=== PATIENT | female | born 2000 | race Caucasian/White ===

== ENCOUNTER 2023-11-14 13:46 | Outpatient (AMB) | payer BC, SELFPAY ==
--- NOTE | 2023-11-14 13:46 | MHC.OFFVISPS ---
Intake Vital Signs 11/14/23 14:20 Height 5 ft 6 in Weight 135 lb Intake Visit Reasons: depression Design Assembler Required: No Allergies No Known Allergies Allergy (Verified 11/14/23 13:48) Medication List - Last Reconciled 11/14/23 by Irina Huber APRN escitalopram oxalate 40 mg PO DAILY mirtazapine 15 mg PO BEDTIME norethindrone ac-eth estradiol 1-20 mg-mcg () 1 tab PO DAILY HPI- Psychiatric Chief Complaint: depression HPI Narrative: pt has been taking lexapro 40 mg daily for severe OCd with good effects; she takes remeron 15mg at bedtime for sleep, appetite and anxiety/depression. she ahs been on these medications since june 2021 with a marked improvement in mood, OCD symptoms and functioning. She is working as a [employer] and is very successful; she broke up with long time BF which she feels was good for her; she is spending time with friends and family. she eats well; she runs 6 miles a day usually. she has no medical changes. Her mother joins the appointment at pts request due to first time in this building. pt will come to futue appointments on her own. no si or hi Past Psychiatric History: Pt came to treatment in 2020 reporting: get extra nervous She worries about a wide range of things including her health, her family's health, about her finding a job, she worries and thinks about her past experiences of being bullied at school. She appears to minimize her symptoms saying not now but in December; She reports the anxiety makes me feel like weight on shoulder sleep poor- wake up night sweats, thinks she is anemic; has vivid dreams. She reports she has loss of appetite frequently-she often has trouble eating in am until late afternoon. she will have snack at 2 pm and eats dinner- snack later in evening. She has OCD and has a hard time talking about intrusive thoughts and rituals; she does say she cleans her bedroom and her belongings a certain way every morning; she will get very upset if someone moves things. She will count to 4 if something is out of order; she was unwilling or unable to describe further. She denies depression; she enjoys her dog. She reports she has a good group of friends who can talk about anything and are supportive to each other; she loves anything to do with dogs, enjoys driving around listening music, she is not in school and likely won't go to school due to Dyslexia and difficult experiences in school. She worked 3yr at [employer] but it closed recently so she is unemployed. History of treatment when in 3rd or 4th grade for OCD, TOMI and dyslexia . She was dx of dyslexia in 3rd grade. She saw a senior hadoop developer in past but it was not a good match. She was prescribed Prozac by PCP up to 60 mg daily in past- over the past two years pt has been tapering it slowly and is now on 10 mg daily. She had an ER visit over the summer due to severe panic attack- she says she was also told she had low potassium at the time. NO inpt treatment; no SI or HI; no previous attempts to hurt or kill herself; no history of Bipolar type symptoms; failed trial of prozac Subjective Subjective Subjective Medication Compliance: Yes Side effects from medications: No Review of Systems Medical Review of Systems: unchanged Mental Status Exam Mental Status Exam Patient Appearance: Well Grooomed and Appropriate Patient Orientation: Person, Place, Time and Situation Level of Consciousness: Awake Patient Behavior: Appropriate and Cooperative Mood Description: Happy and Anxious Affect Description: Happy and Anxious Patient Cognition Impaired: No Ability to Follow Directions: Good Speech Pattern: Clear and Appropriate Memory Description: Intact Hallucinations: None Delusions: Not Present Thought Process: Intact and Goal Oriented Thought Content: positive for Intact and positive for Goal Oriented Judgement: Good Assessment and Plan Assessment & Plan (1) OCD (obsessive compulsive disorder): Status: Acute Qualifiers: Obsessive-compulsive disorder type: mixed obsessional thoughts and acts Qualified Code(s): F42.2 - Mixed obsessional thoughts and acts Code(s): F42.9 - Obsessive-compulsive disorder, unspecified Plan continue medications return in 4 months Medications: New escitalopram oxalate 40 mg (2 x 20 mg) PO DAILY 60 tabs 3RF mirtazapine 15 mg PO BEDTIME 30 tabs 3RF Counseling and coordination of Care Pt. Self Management counseling: Maintenance-social rhythm, Mod caffeine/ETOH intake, Sleep hygiene and General coping skills Medication management counseling: Effectiveness, Side effects, Dosing range, Duration, Drug interaction and Adherence Diagnosis and Prognosis Counseling: Accuracy of diagnosis, Prognosis over time, Impact of diagnosis on life functions, Impact of family relationship, Problematic behaviors secondary to diagnosis and Adequacy of current interventions Details: I spent 45 minutes reviewing the record, seeing the patient and documenting in the medical record. Counseling provided to the patient/caregiver as outlined below. Addressed patient/caregiver concerns regarding current medication regime including effective adherence. Addressed patient/caregiver concerns regarding diagnosis and prognosis including accuracy of diagnosis, prognosis over time, impact of diagnosis. Addressed patient/caregiver concerns regarding impact of recent stressors. PFSH Social History: lives with mom, stepdad, grandmother and step sister ; works as technical documentation specialist. Substance History: vapes especially at night to get back t sleep if wakes in night; uses small amounts on weekends; drinks 4 drinks per week. Trauma History: none Coding Level of Care Code Est Pt Level 5 (44016) Diagnoses Mixed obsessional thoughts and acts F42.2 Obsessive-compulsive disorder type: mixed obsessional thoughts and acts
== END 2023-11-14 15:06 | disposition home or self-care (01) ==
LOC: HO.HOP 13:46
PROVIDERS: PCP Internal Medicine; Visit Provider Clinical Nurse Specialist Psychiatric/Mental Health
DX: F42.2 Mixed obsessional thoughts and acts (principal)
CPT/HCPCS: 99215

== ENCOUNTER → 2023-11-14 13:46 | Outpatient (BNVA) | payer BC, SELFPAY | PROVIDERS: PCP Internal Medicine; Visit Provider Clinical Nurse Specialist Psychiatric/Mental Health ==

== ENCOUNTER 2024-07-22 13:44 | Outpatient (AMB) | payer OTHER, SELFPAY ==
--- NOTE | 2024-07-22 13:59 | A.OFFPSYCH_ITS ---
Intake Intake Visit Reasons: depression Dredge Captain Required: No Allergies No Known Allergies Allergy (Verified 11/14/23 13:48) Medication List - Last Reconciled 07/22/24 by Irina Huber APRN escitalopram oxalate 40 mg (2 x 20 mg) PO DAILY mirtazapine 15 mg PO BEDTIME norethindrone ac-eth estradiol 1-20 mg-mcg () 1 tab PO DAILY HPI- Psychiatric Chief Complaint: depression HPI Narrative: pt reports she is 4 weeks ; she is taking the lexarpo 40mg daily but stopped the remeron at bedtime; she reports mood is good; anxiety is stable; she is not sleeping well since stopping the remeron; we discussed riaks vs benefits of lexapro and remeron during ; reviewed the findings of NIH stufdies that show overall better for mom and baby for depression and anxiety to be fully treated while preganant; And that there was a conflicting evidence that there is a very small risk of congenital heart malformations, low weight and delvery with SSRIs. recommended she talk with WILL dubose to get appt and also see if the psychitrist at [facility] who specializes in psychiatry could meet with her for a consult. discussed if tolerable could reduc e leaspro to 30mg for one month and if still feeling good could reduce to 20mg daily and stay there if tolerable. If not tolerated could increase back to 30 mg or 40 mg in 4th trimester and then reduce again in 9th trimester so that baby has less withdrawal symptoms at . recommend pt go back on the remeron for sleep and appetite. pt denies SI r HI. Past Psychiatric History: Pt came to treatment in 2020 reporting: get extra nervous She worries about a wide range of things including her health, her family's health, about her finding a job, she worries and thinks about her past experiences of being bullied at school. She appears to minimize her symptoms saying not now but in December; She reports the anxiety makes me feel like weight on shoulder sleep poor- wake up night sweats, thinks she is anemic; has vivid dreams. She reports she has loss of appetite frequently-she often has trouble eating in am until late afternoon. she will have snack at 2 pm and eats dinner- snack later in evening. She has OCD and has a hard time talking about intrusive thoughts and rituals; she does say she cleans her bedroom and her belongings a certain way every morning; she will get very upset if someone moves things. She will count to 4 if something is out of order; she was unwilling or unable to describe further. She denies depression; she enjoys her dog. She reports she has a good group of friends who can talk about anything and are supportive to each other; she loves anything to do with dogs, enjoys driving around listening music, she is not in school and likely won't go to school due to Dyslexia and difficult experiences in school. She worked 3yr at [employer] but it closed recently so she is unemployed. History of treatment when in 3rd or 4th grade for OCD, TOMI and dyslexia . She was dx of dyslexia in 3rd grade. She saw a health actuary in past but it was not a good match. She was prescribed Prozac by PCP up to 60 mg daily in past- over the past two years pt has been tapering it slowly and is now on 10 mg daily. She had an ER visit over the summer due to severe panic attack- she says she was also told she had low potassium at the time. NO inpt treatment; no SI or HI; no previous attempts to hurt or kill herself; no history of Bipolar type symptoms; failed trial of prozac Subjective Subjective Subjective Medication Compliance: Yes Side effects from medications: No Review of Systems Medical Review of Systems: changed (4 weeks ) Mental Status Exam Mental Status Exam Patient Appearance: Well Grooomed Patient Orientation: Person, Place, Time and Situation Level of Consciousness: Awake, Appropriate and Alert Patient Behavior: Appropriate, Cooperative and Good Eye Contact Mood Description: Calm and Happy Affect Description: Calm and Happy Patient Cognition Impaired: No Ability to Follow Directions: Good Speech Pattern: Clear Memory Description: Intact Hallucinations: None Delusions: Not Present Thought Process: Intact and Goal Oriented Thought Content: positive for Goal Oriented Judgement: Good Telehealth Telehealth Telehealth Platform: Other (please specify) ([email or web address]) Location of provider rendering services: practice address Location of patient: address on file Patient Identification confirmed using: Name, : Yes Telehealth method: video Patient verbally consented to treatment: Yes Patient verbally consented to billing insurance company: Yes Patient informed of any privacy concerns related to visit: Yes Minutes spent on Phone/Video with Pt.: 28 Assessment and Plan Assessment & Plan (1) OCD (obsessive compulsive disorder): Status: Acute Qualifiers: Obsessive-compulsive disorder type: mixed obsessional thoughts and acts Qualified Code(s): F42.2 - Mixed obsessional thoughts and acts Code(s): F42.9 - Obsessive-compulsive disorder, unspecified Plan recommend decrease lexarpo to 30mg daily x 1 month then decrease to 20mg daily until next follow up appt can restart remeron at bedtime follow up in 6-8 weeks reacj out to [facility] and see if can schedule consult with psychiatrist Medications: Refilled mirtazapine 15 mg PO BEDTIME 30 tabs 3RF escitalopram oxalate 40 mg (2 x 20 mg) PO DAILY 180 tabs 1RF Counseling and coordination of Care Pt. Self Management counseling: Maintenance-social rhythm, Mod caffeine/ETOH intake, Nutrition education and improvement, Sleep hygiene and Behavior activation Medication management counseling: Effectiveness, Side effects, Dosing range, Duration, Drug interaction and Adherence Diagnosis and Prognosis Counseling: Accuracy of diagnosis, Prognosis over time, Impact of diagnosis on life functions, Impact of family relationship, Problematic behaviors secondary to diagnosis and Adequacy of current interventions Details: I spent 40 minutes reviewing the record, seeing the patient and documenting in the medical record. Counseling provided to the patient/caregiver as outlined below. Addressed patient/caregiver concerns regarding current medication regime including ef fective adherence. Addressed patient/caregiver concerns regarding diagnosis and prognosis including accuracy of diagnosis, prognosis over time, impact of diagnosis. Addressed patient/caregiver concerns regarding impact of recent stressors. [facility] Social History: lives with mom, stepdad, grandmother and step sister ; works as cat scan tech. Substance History: vapes especially at night to get back t sleep if wakes in night; uses small amounts on weekends; drinks 4 drinks per week. Trauma History: none Coding Level of Care Code Tele Est Pt Level 4 (33453) Diagnoses Mixed obsessional thoughts and acts F42.2 Obsessive-compulsive disorder type: mixed obsessional thoughts and acts
--- OUTSIDE RECORDS SUMMARY | 2024-07-22 16:32 | XMS_ITS | Data Portability ---
Author Organization [place] - [facility],, DENISHA COWAN MD Address [address] [address] Assessment No assessment recorded. Plan of Treatment Reminders Order Date Submit Date Provider Last Modified By Organization Details Last Modified Time Details Appointments None recorded. Lab None recorded. Referral None recorded. Procedures None recorded. Surgeries None recorded. Imaging None recorded. Medication Orders Depo-Kosher Butcher a 150 mg/mL intramuscul ar suspension 2022 023 [email or web address] n1 [id number], [address] [place] [address], [id number], 3 08:26:36 Depo-Kosher Butcher a 150 mg/mL intramuscul ar suspension 2021 022 [email or web address] n1 [id number], [address] [place] [address], [id number], 2 08:16:55 Depo-Kosher Butcher a 150 mg/mL intramuscul ar suspension 2021 022 [email or web address] n1 [id number], [address] [place] [address], [id number], 2 15:15:42 Depo-Kosher Butcher a 150 mg/mL intramuscul ar suspension 2021 022 [email or web address] n1 [id number], [address] [place] [address], [id number], 2 09:50:44 Patient TargetsNo targets recorded. Patient Instructions Encounter Date Encounter Id Patient Instructions Last Modified By Organization Details Last Modified Time 09/21/2021 [id number] shot for control: care instructions Not available 09/21/2021 09:50:44 12/17/2021 [id number] shot for control: care instructions Not available 12/17/2021 15:15:41 03/14/2022 [id number] shot for control: care instructions Not available 03/14/2022 08:16:55 06/06/2022 [id number] shot for control: care instructions Not available 06/06/2022 08:26:36 09/06/2022 [id number] She is here for annual exam, she is on depo provera, is 4 days past the 13 week cut off for the injection. Initially she informed the MA that she had not been sexually active in one week. She later stated that she has not been sexually active in 5 months, that she is certain she could not be , and would like to get the injection today, and she is certain that she is still within the 13 week time frame, in any event. ____ Note from 03/2021: She is here for annual exam, doing well on depo provera, only rare spotting, elects to continue. She weighed 150 pounds a year ago, now is 111. She notes it is due to gastritis. When I eat things I get heartburn, even just some almonds. She is 5 feet 6 inches. She has an appointment this to see a front edger. She has never tried prilosec. We discussed her weight loss. She denies anorexia or intentional weight loss, she feels it is due to gastritis. She is advised to start prilosec OTC for now, and to see her PCP and also a GI doctor. She understands and agrees. She has been on depo provera since 02/2018, and she was gaining weight after that for a while, so her gastritis is not likely due to the depo provera. The MA and I explained to her how the 13 weeks is calculated, however she notes that we are wrong and she is still in the time frame. I advised her that if indeed she has not been sexually active in 5 months then we can go ahead with the injection today, that was not a problem. She noted that she has anxiety and this was stressing me out. She called her mother to speak with her, and after this she noted that she has decided not to get the injection today and not to have the annual exam today. She preferred to just leave. This conversation was had in the presence of TM, the MA. I apologized to the patient for upsetting her, and again advised that we could give her the depo provera injection today, however she adamantly declines, ad decided to just go home. No charge for the visit. Not available 09/06/2022 14:52:39 Reason for Referral None Reported. Problems Name Problem SNOMED Code Status Onset Date Resolution Date Notes Provider Name and Address Organization Details Recorded Time Chill 57890719 Active 2018 Denisha Cowan MD [address] [facility],[address], [place], [address], [facility] - [facility], 9 14:44:22 Fatigue 33218724 Active 2018 Denisha Cowan MD [address] [facility],[address], [place], [address], [place] - [facility], 9 14:44:30 Unexplained weight loss 509862985 Active 2021 Denisha Cowan MD [address] [facility],[address], [place], [address], [facility] - [facility], 2 11:06:02 Problem Notes None recorded. Medical Equipment None Reported. Allergies No known drug allergies Medications Name Sig Start Date Stop Date Status Note LastModified by Organization Details LastModified Time valacyclovi r 1 gram tablet Take by oral route for 1 day. active Not Available Not Available No t Available penicillin V potassium 500 mg tablet TAKE 1 TABLET TWICE A DAY BY ORAL ROUTE FOR 10 DAYS. 01/04 completed Not Available Not Available Not Available fluoxetine 20 mg tablet TAKE 1 TABLETS BY MOUTH EVERY DAY 01/21 completed Not Available Not Available Not Available clotrimazol e-betametha sone 1 %-0.05 % topical cream active Not Available Not Available Not Available fluoxetine 10 mg capsule TAKE 1 CAPSULE BY MOUTH EVERY DAY 10/13 completed Not Available Not Available Not Available Drysol Dab-O-Matic 20 % topical solution PLEASE SEE ATTACHED FOR DETAILED DIRECTION S active Not Available Not Available No t Available amoxicillin 400 mg/5 mL oral suspension 10/13 completed Not Available Not Available Not Available mupirocin 2 % topical ointment APPLY 1-3X DAILY TO WOUND ON FOOT (BX SITE) UNTIL HEALED. active Not Available Not Available No t Available mirtazapine 15 mg tablet TAKE 1 TABLET BY MOUTH EVERYDAY AT BEDTIME active Not Available Not Available No t Available medroxyprog esterone 150 mg/mL intramuscul ar suspension INJECT 1 ML EVERY 3 MONTHS BY INTRAMUSC ULAR ROUTE DIRECTED active Not Available Not Available No t Available Depo-Kosher Butcher a 150 mg/mL intramuscul ar syringe Inject 1 mL every 3 months by intramusc ular route. 10/28 completed Not Available Not Available Not Available escitalopra m 10 mg tablet TAKE 1 TABLET BY MOUTH EVERY DAY 08/02 completed Not Available Not Available Not Available escitalopra m 20 mg tablet TAKE 2 TABLETS BY MOUTH EVERY DAY active Not Available Not Available No t Available Klor-Con M20 mEq tablet,exte nded release 04/19 completed Not Available Not Available Not Available mirtazapine 7.5 mg tablet TAKE 1 TABLET BY MOUTH EVERYDAY AT BEDTIME 08/02 completed Not Available Not Available Not Available Vitals Date Recorded Body height Body mass index (BMI) Body weight Body temperature Heart rate Systolic blood pressure Diastolic blood pressure Provider Name and Address Organization Details Last Updated DateTime 2 168.91 cm 19.4 kg/m2 79095.2 7 g 97.2 [degF] 76 /min 102 mm[Hg] 65 mm[Hg] Candelaria Armstrong [place] - [facility], 2 09:32:55 Date Recorded Body height Body mass index (BMI) Body weight Heart rate Systolic blood pressure Diastolic blood pressure Provider Name and Address Organization Details Last Updated DateTime 2 168.91 cm 20.7 kg/m2 11135.0 1 g 76 /min 107 mm[Hg] 62 mm[Hg] Candelaria Sivla in [facility], 2 14:41:59 Date Recorded Body height Body mass index (BMI) Body weight Heart rate Systolic blood pressure Diastolic blood pressure Provider Name and Address Organization Details Last Updated DateTime 2 168.91 cm 20.7 kg/m2 48780.0 1 g 65 /min 103 mm[Hg] 52 mm[Hg] Candelaria Silva in [facility], 2 07:57:10 Date Recorded Body height Body mass index (BMI) Body weight Heart rate Body temperature Systolic blood pressure Diastolic blood pressure Provider Name and Address Organization Details Last Updated DateTime 3 168.91 cm 21.3 kg/m2 07125.1 g 81 /min 98.8 [degF] 110 mm[Hg] 59 mm[Hg] Ana Silva in [facility], 3 07:57:48 Date Recorded Body height Body mass index (BMI) Body weight Heart rate Systolic blood pressure Diastolic blood pressure Provider Name and Address Organization Details Last Updated DateTime 3 168.91 cm 22.1 kg/m2 93169.3 4 g 79 /min 129 mm[Hg] 66 mm[Hg] Candelaria Silva in [facility], 3 14:18:07 Social History Question Answer Notes LastModified by Organizat ion Details LastModified Time Tobacco Smoking Status Never Smoker Not Available [facility] 03/28/2020 03:19:43 Do You Have An Advance Directive? No [id number] Information not available 03/28/2020 What Is Your Level Of Alcohol Consumption? Occasional Information not available 01/04/2021 How Many Years Have You Consumed Alcohol? 1 Information not available 01/04/2021 What Is Your Level Of Caffeine Consumption? Moderate [id number] Information not available 03/28/2020 How Much Tobacco Do You Chew? None [id number] Information not available 03/28/2020 In The 14 Days Before Symptom Onset, Have You Had Close Contact With A Laboratory-lissette FERRARIID-19 While That Case Was Ill? No [id number] Information not available 03/28/2020 In The 14 Days Before Symptom Onset, Have You Had Close Contact With A Person Who Is Under Investigation For COVID-19 While That Person Was Ill? No [id number] Information not available 03/28/2020 Have You Been To An Area Known To Be High Risk For COVID-19? No [id number] Information not available 03/28/2020 Are You Currently Employed? Yes Information not available 09/21/2021 What Type Of Diet Are You Following? REGULAR [id number] Information not available 03/28/2020 Which Illicit Or Recreational Drugs Have You Used? Marijuana Information not available 10/13/2020 Do You Reside In Or Have You Traveled To An Area Where Ebola Virus Transmission Is Active? No [id number] Information not available 03/28/2020 Do You Or Have You Ever Used E-cigarettes Or Vape? Current User Of Electronic Cigarettes Sometimes Information not available 04/19/2020 Education 12 Information no t available 01/21/2019 What Is The Highest Grade Or Level Of School You Have Completed Or The Highest Degree You Have Received? [id number] Information not available 01/04/2021 Who Is Your Employer? 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 0 Information not available 01/21/2019 Are There Any Guns Present In Your Home? No [id number] Information not available 03/28/2020 High Number Of Sexual Partners No Information not available 01/21/2019 How Many Years Have You Used Illicit Or Recreational Drugs? 14 Information not available 01/04/2021 To Which Gender Do You Self-identify? Female Information not available 01/21/2019 Marital Status Single Boyfriend Informatio n not available 04/19/2020 What Was The Date Of Your Most Recent Tobacco Screening? 09/06/2022 Information not available 09/06/2022 What Is Your Relationship Status? Single Information not available 01/04/2021 Seat Belts Used Routinely Yes Information not available 01/21/2019 Are You Sexually Active? Yes [id number] Information not available 03/28/2020 Smoke Alarm In Home Yes Information not available 01/21/2019 At What Age Did You Start Smoking Tobacco? 16 Marijuana Information not available 10/13/2020 Do You Or Have You Ever Used Smokeless Tobacco? Never Used Smokeless Tobacco [id number] Information not available 03/28/2020 How Much Tobacco Do You Smoke? No [id number] Information not available 03/28/2020 General Stress Level Medium Information not available 01/21/2019 Do You Feel Stressed (tense, Restless, Nervous, Or Anxious, Or Unable To Sleep At Night)? [id number] Information not available 01/04/2021 Do You Use Any Illicit Or Recreational Drugs? Yes Information not available 01/04/2021 Do You Use Sunscreen Routinely? Yes [id number] Information not available 03/28/2020 How Many Years Have You Smoked Tobacco? 0 [id number] Information not available 03/28/2020 Have You Recently (within The Last 12 Weeks, Or During A Current ) Traveled To Or Lived In A Zika-affected Area? No Information not available 01/21/2019 Do You Or Have You Ever Used Any Other Forms Of Tobacco Or Nicotine? Yes Information not available 01/04/2021 How Many Days In The Past Year Have You Consumed 4 Or More Drinks? 0 Information not available 01/04/2021 Sex: Female Functional Status Question Answer Note LastModified by Organization D etails LastModified Time What is your exercise level? Heavy Information not available 04/19/2020 Mental Status None recorded. Family History Relationship Description Onset Age of this Age Resolved Age Notes LastModified by Organization Details LastModified Time Father No current problems or disability [email or web address] Not available 01/21 14:11:20 Mother No current problems or disability [email or web address] Not available 01/21 14:11:20 Medical History Condition Response High Blood Pressure N Autoimmune Condition N Depression N History of Ovarian Cancer N Anxiety Disorder Y Arthritis N Infertility N Kidney or Bladder Problems N Osteopenia N Asthma N Hepatitis N Anesthesia complications N Candidate for MyRisk panel N Lung Disease N Defects or Inherited Disease N BRCA testing in past N History of Cancer N Endometriosis N Thyroid Problems N GI Problems N Anemia N History of Breast Cancer N EBENEZER exposure N Psychiatric Illness N Diabetes N Headaches or Migraines Y Heart Disease N Hypertension N Osteoporosis N Gynecological History Statement/Question Response Flow Light Date of LMP 04/20/2019 Frequency of Cycle (Q days) Menses Monthly N Duration of Flow (days) Age at Menarche 12 Current Control Method Depo-Kosher Butcher a Obstetrics History GPAL:G 1 P 0 0 1 0 Type Value Induced 1 Living 0 Total 1 Immunizations Vaccine Type Date Status Note Provider Nam e and Address Organization Details Recorded Time Influenza, split virus, quadrivalent, preservative 8 completed Ana Meczywor null [place] - [facility], 01/21/2019 14:10:35 HPV, unspecified formulation 8 completed Ana Meczywor null, [place] - [facility], 01/21/2019 14:11:02 COVID-19, mRNA, LNP-S, PF, 100 mcg/0.5mL dose or 50 mcg/0.25mL dose 1 completed Candelaria copeland [place] - [facility], 09/21/2021 09:33:54 IPV 1 completed Ana Meczywor null, [place] - [facility], 06/06/2022 08:06:22 IPV 0 completed Ana Meczywor null, [place] - [facility], 06/06/2022 08:06:22 meningococcal B, OMV 1 completed Ana Meczywor null, [place] - [facility], 06/06/2022 08:06:22 Hep B, adolescent or pediatric 0 completed Ana Meczywor null, [place] - [facility], 06/06/2022 08:06:22 DTaP 0 completed Ana Meczywor null, [place] - [facility], 06/06/2022 08:06:22 MMR 5 completed Ana Meczywor null, [place] [facility], 06/06/2022 08:06:22 HPV9 5 completed Ana Meczywor null, [place] - [facility], 06/06/2022 08:06:22 COVID-19, mRNA, LNP-S, PF, 100 mcg/0.5mL dose or 50 mcg/0.25mL dose 2 completed Ana Meczywor null, [place] - [facility], 06/06/2022 08:06:22 MMR 1 completed Ana Meczywor null, [place] [facility], 06/06/2022 08:06:22 DTaP 0 completed Ana Meczywor null, [place] [facility], 06/06/2022 08:06:22 pneumococcal conjugate PCV 7 0 completed Ana Meczywor null, [place] - [facility], 06/06/2022 08:06:22 DTaP 5 completed Ana Meczywor null, [place] - [facility], 06/06/2022 08:06:22 IPV 0 completed Ana Meczywor null, [place] - [facility], 06/06/2022 08:06:22 DTaP 0 completed Ana Meczywor null, [place] - [facility], 06/06/2022 08:06:22 meningococcal MCV4P 6 completed Ana Meczywor null, [place] - [facility], 06/06/2022 08:06:22 Hep B, adolescent or pediatric 0 completed Ana Meczywor null, [place] - [facility], 06/06/2022 08:06:22 meningococcal B, OMV 0 completed Ana Meczywor null, [place] - [facility], 06/06/2022 08:06:22 HPV9 5 completed Ana Meczywor null, [place] - [facility], 06/06/2022 08:06:22 pneumococcal conjugate PCV 7 1 completed Ana Meczywor null, [place] - [facility], 06/06/2022 08:06:22 IPV 4 completed Ana Meczywor null, [place] [facility], 06/06/2022 08:06:22 Hep B, adolescent or pediatric 1 completed Ana Meczywor null, [place] [facility], 06/06/2022 08:06:22 pneumococcal conjugate PCV 7 1 completed Ana Meczywor null, [place] - [facility], 06/06/2022 08:06:22 Hib, unspecified formulation 1 completed Ana Meczywor null, [place] - [facility], 06/06/2022 08:06:22 Influenza, split virus, trivalent, PF 3 completed Ana Meczywor null, [place] - [facility], 06/06/2022 08:06:22 varicella 1 completed Ana Meczywor null, [place] - [facility], 06/06/2022 08:06:22 DTaP 1 completed Ana Meczywor null, [place] - [facility], 06/06/2022 08:06:22 meningococcal MCV4P 2 completed Ana Meczywor null, [place] - [facility], 06/06/2022 08:06:22 COVID-19, mRNA, LNP-S, PF, 100 mcg/0.5mL dose or 50 mcg/0.25mL dose 2 completed Ana Meczywor null, [place] - [facility], 06/06/2022 08:06:22 Hib, unspecified formulation 0 completed Ana Meczywor null, [place] - [facility], 06/06/2022 08:06:22 Influenza, split virus, quadrivalent, PF 8 completed Ana Meczywor null, [place] - [facility], 06/06/2022 08:06:22 varicella 3 completed Ana Meczywor null, [place] - [facility], 06/06/2022 08:06:22 pneumococcal conjugate PCV 7 1 completed Ana Meczywor null, [place] - [facility], 06/06/2022 08:06:22 Hib, unspecified formulation 0 completed Ana Meczywor null, [place] - [facility], 06/06/2022 08:06:22 HPV, quadrivalent 4 completed Ana Meczywor null, [place] - [facility], 06/06/2022 08:06:22 Hib, unspecified formulation 0 completed Ana Meczywor null, [place] - [facility], 06/06/2022 08:06:22 Tdap 2 completed Ana Meczywor null, [place] - [facility], 06/06/2022 08:06:22 Past Encounters Encounter ID Performer Location Encounter Start Date Encounter Closed Date Diagnosis/Indication Diagnosis SNOMED-CT Code Diagnosis ICD10 Code Diagnosis Note [id number] MD DENISHA Stephenson MD [address] [facility] [address] [facility] [place] [address] 01/21/2019 13:52:52 01/21/2019 15:49:29 Specialized medical examination 58596597 Z01.419 Venereal d isease screening 746944149 Z11.3 Dysuria 78643920 R30.0 Urine for culture 118671 001 Z75.2 [id number] MD DENISHA Stephenson MD [address] [place] [address],[address] [place] [address] 02/05/2019 08:20:30 02/05/2019 09:53:47 Dysmenorrhea [id number] N94.4 [id number] MD DENISHA Stephenson MD [address] [place] [address],[place] [address] 04/30/2019 08:50:44 04/30/2019 12:14:24 Dysmenorrhea [id number] N94.4 [id number] MD DENISHA Stephenson MD [address] [place] [address],[place] [address] 08/03/2019 13:55:06 08/03/2019 14:48:13 Dysmenorrhea [id number] N94.4 [id number] MD DENISHA Stephenson MD [address] [place] [address],[place] [address] 10/29/2019 09:19:20 10/29/2019 09:56:40 Dysmenorrhea [id number] N94.4 [id number] MD DENISHA Stephenson MD [address] [place] [address],[place] [address] 01/24/2020 10:00:55 01/24/2020 13:34:50 Dysmenorrhea [id number] N94.4 Specialize d medical examination 87536073 Z01.419 Venereal d isease screening 587844519 Z11.3 [id number] MD DENISHA Stephenson MD [address] [place] [address],[place] [address] 04/19/2020 08:58:53 04/19/2020 09:29:28 Dysmenorrhea [id number] N94.4 [id number] MD DENISHA Stephenson MD [address] [place] [address],[place] [address] 07/17/2020 09:00:53 07/17/2020 09:52:25 Dysmenorrhea [id number] N94.4 [id number] DenishaMD DENISHA Yanes MD [address] [place] [address],[place] [address] 10/13/2020 10:20:52 10/13/2020 11:11:06 Dysmenorrhea [id number] N94.4 [id number] MD DENISHA Stephenson MD [address] [place] [address],[place] [address] 01/04/2021 08:51:29 01/04/2021 11:41:09 Dysmenorrhea [id number] N94.4 [id number] MD DENISHA Stephenson MD [address] [place] [address],[place] [address] 04/03/2021 09:15:51 04/03/2021 10:09:38 Specialized medical examination 82984734 Z01.419 Venereal d isease screening 086848410 Z11.3 Dysmenorrhea [id number] N 94.4 [id number] MD DENISHA Stephenson MD [address] [place] [address],[place] [address] 06/28/2021 09:57:30 06/28/2021 15:58:51 Dysmenorrhea [id number] N94.4 [id number] MD DENISHA Stephenson MD [address] [place] [address],[place] [address] 08/02/2021 10:44:04 08/02/2021 13:18:09 Chill 04360934 R68.83 Fatigue 26306503 R53.83 Unexplaine d weight loss 957354890 R63.4 [id number] MD DENISHA Stephenson MD [address] [place] [address],[place] [address] 09/21/2021 09:27:52 09/21/2021 11:55:09 Dysmenorrhea [id number] N94.4 [id number] MD DENISHA Stephenson MD [address] [place] [address],[place] [address] 12/17/2021 14:38:55 12/17/2021 16:03:24 Dysmenorrhea [id number] N94.4 [id number] MD DENISHA Stephenson MD [address] [place] [address], [place] [address] 03/14/2022 07:53:16 03/14/2022 09:11:16 Dysmenorrhea [id number] N94.4 [id number] MD DENISHA Stephenson MD [address] [place] [address], [place] [address] 06/06/2022 07:55:18 06/06/2022 09:19:26 Dysmenorrhea [id number] N94.4 [id number] MD DENISHA Stephenson MD [address] [place] [address], [place] [address] 09/06/2022 14:14:10 09/06/2022 15:08:20 Health Concerns Section Related Observation LastModified by Organization Detai ls LastModified Time None Recorded Concern Status LastModified by Organization Details LastModified Time None Recorded Advance Directives Directive N: Payers Encounter Date Sequence Insurance Name Policy Number Policy Goodson Covered Member ID Goodson Member ID Guarantor Name 09/21/2021 1 [place] [facility] [id number] Yen Rai [id number] 05 Yazmin Rai 12/17/2021 1 [place] [facility] ([facility] [id number] Yen Rai [id number] Yazmin Rai 03/14/2022 1 [place] [facility] ([facility] [id number] Yen Rai [id number] 05 Yazmin Rai 06/06/2022 1 [place] [facility] ([facility] [id number] Yen Rai [id number] 05 Yazmin Rai 09/06/2022 1 [place] [facility] ([facility] [id number] Yen Rai [id number] Yazmin Rai Notes Date Note Type Note Provider Name and Address Organization Details Recorded Time 09/06/2022 text/html She is here for annual exam, she is on depo provera, is 4 days past the 13 week cut off for the injection. Initially she informed the MA that she had not been sexually active in one week. She later stated that she has not been sexually active in 5 months, that she is certain she could not be , and would like to get the injection today, and she is certain that she is still within the 13 week time frame, in any event. Note from 03/2021: She is here for annual exam, doing well on depo provera, only rare spotting, elects to continue.She weighed 150 pounds a year ago, now is 111. She notes it is due to gastritis. When I eat things I get heartburn, even just some almonds. She is 5 feet 6 inches.She has an appointment this to see a front edger. She has never tried prilosec.We discussed her weight loss. She denies anorexia or intentional weight loss, she feels it is due to gastritis.She is advised to start prilosec OTC for now, and to see her PCP and also a GI doctor. She understands and agrees.She has been on depo provera since 02/2018, and she was gaining weight after that for a while, so her gastritis is not likely due to the depo provera. Denisha Cowan MD [address], [place], [address], [place] - [facility], 09/06/2022 14:52:57 OBGyn Episode No OBEpisode recorded.
--- OUTSIDE RECORDS SUMMARY | 2024-07-22 16:32 | XMS_ITS ---
Author Organization [facility] Address [address] [place] [address] Care Team Providers Care Molecular Biology Scientist Name Role Phone BAIG, JOHNNY Unavailable [phone] Encounters Encounter Location Date Provider Diagnosis [facility] [address] [place] [address] 11/05/2023 JOHNNY BAIG PLAN OF TREATMENT No Information Progress Notes * Lauryn YOB: [birth year] (23 yo F)Acc No.[id number]:11/05/2023 Patient:??Yazmin YO :2000?Age:23 Y?Sex:Fe male Address:[place] [address] * true * Date:??
--- OUTSIDE RECORDS SUMMARY | 2024-07-22 16:32 | XMS_ITS | Continuity of Care Document ---
Author Organization [facility] [address] [place] [address] Phone [phone] Social History Type Date Description Comments Sex Unknown Medical Devices Description No Information Available Encounters Description No Information Available Assessments Description No Information Available Plan of Treatment No Information Available Functional Status Description No Information Available Mental Status Description No Information Available Referrals Description No Information Available
--- OUTSIDE RECORDS SUMMARY | 2024-07-22 16:32 | XMS_ITS | Data Portability ---
Author Organization [place] - [facility], [facility] Address [address] [place] [address] Assessment Encounter Date Assessment Date Assessment LastModified by Organization Details LastModified Time 03/10/2019 03/10/2019 Anxiety- doing well on lexapro- no side effects. No SI and does contract for safety- disc therapy gastritis- abd pain resolved on omeprazole. doing well jyunis Not available 03/10/2019 17:00:39 06/15/2019 06/15/2019 Healthy 18 year old. Nl growth and dev Anxiety - doing well on lexapro- is in therapy as needed- no SI STD screening done at [facility] 2 months ago and not sex active since jyunis Not available 06/15/2019 17:08:30 12/06/2019 12/06/2019 Anxiety - doing well on lexapro- does contract for safety. anxiety under good control.. FU at [facility]. sooner with concerns jyunis Not available 12/06/2019 15:43:55 08/21/2020 08/21/2020 Healthy 19 year old. Nl growth and dev Anxiety - doing well on lexapro- no SI- is seeing psych for lexapro- Not in therapy STD screening done at [facility] 1 months ago jyunis Not available 08/21/2020 13:05:12 10/11/2020 10/11/2020 Strep pharyngitis - Amox (pt unable to swallow pills due to pain) x 10 days, change toothbrush, contagious x 12 hrs, sx care, f/u prn; Tonsillar hypertrophy - baseline with some snoring per Mom and pt, no apnea, to try Flonase or Nasocort, f/u prn kcamera Not available 10/12/2020 03:41:34 Plan of Treatment Reminders Order Date Submit Date Provider Last Modified By Organization Details Last Modified Time Details Appointments None recorded. Lab rapid strep group A, throat 2020 021 crystal [facility], [address] [place] [address], [phone], 17:09:38 Referral None recorded. Procedures None recorded. Surgeries None recorded. Imaging None recorded. Medication Orders amoxicillin 400 mg/5 mL oral suspension 2020 021 [facility] #[id number], [address] [place], [address], 03:30:53 Patient TargetsNo targets recorded. Patient Instructions Encounter Date Encounter Id Patient Instructions Last Modified By Organization Details Last Modified Time 06/15/2019 [id number] program - 5 fruits & veggies jyunis Not available 06/15/2019 16:39:08 [id number] program - 1 hour of exercise jyunis Not available 06/15/2019 16:39:07 patient health questionnaire depression assessment* jyunis Not available 06/15/2019 17:08:07 immunization: wh at you need to know jyunis Not available 06/15/2019 16:39:07 08/21/2020 [id number] program - 5 fruits & veggies jyunis Not available 08/21/2020 13:07:33 [id number] program - 1 hour of exercise jyunis Not available 08/21/2020 13:07:33 patient health questionnaire depression assessment* ROSA Not available 08/21/2020 14:44:31 immunization: wh at you need to know jyunis Not available 08/21/2020 13:07:33 Reason for Referral None Reported. Results Created Date Observation Date Name Description Value Unit Range Abnormal Flag Note LastModifiedBy Organization Detail LastModifiedTime 06/15/19 20 06/15/2019 patie nt [facility]alt [facility] quest ionna meghan depre ssion asses sment * PHQ-9 negati ve Not Available [facility] [address] [place] [address], [phone], 06/15/2019 15:27:51 08/22/19 21 08/21/2020 patie nt healt h quest ionna meghan otis small * PHQ-9 negati ve Not Available [facility] [address] [place] [address], [phone], 08/21/2020 08:26:48 10/12/19 21 10/11/2020 rapid strep group A, throa t Rapid Strep positi ve Not Available [facility] [address] [place] [address], [phone], 10/11/2020 16:28:23 Result Notes None recorded. Problems Name Problem SNOMED Code Status Onset Date Resolution Date Notes Provider Name and Address Organization Details Recorded Time Abdominal pain 30952286 Completed 09/26/2011 Not Available [facility] 3 03:02:28 Pneumonia 924201457 Completed 10/22/2012 Not Available [facility] 3 03:02:28 Viral disease 28348263 Completed 10/22/2012 Not Available [facility] 3 03:02:28 Constipati on 87609403 Completed 09/26/2011 Not Available [facility] 3 03:02:28 Child attention deficit disorder 908839844 Completed 12/06/2013 Jim Almendarez MD [address] [place] [address], , [facility] 4 11:47:43 Otitis externa 9742056 Completed 09/26/2011 Not Available [facility] 3 03:02:28 Acute pharyngiti s 849985784 Completed 09/26/2011 Not Available [facility] 3 03:02:28 Anxiety state 518528790 Active Jim Almendarez MD [address] [place] [address], , [facility] 5 17:22:58 Developmen florinda academic disorder 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 Completed 12/06/2013 Jim Almendarez MD [address] [place] [address], , [facility] 4 12:35:36 Malaise and fatigue 461476018 Completed 09/26/2011 Not Available [facility] 3 03:02:28 Obsessive- compulsive disorder 189618842 Active Jim Almendarez MD [address] [place] [address], , [facility] 3 15:11:33 Headache 27055731 Completed 12/06/2013 Jim Almendarez MD [address] [place] [address], , [facility] 4 11:47:43 Acute pharyngiti s 656996880 Completed 12/06/2013 Jim Almendarez MD [address] [place] [address], , [facility] 4 11:47:43 Sinusitis 72220883 Completed 01/22/2019 [facility] 08:47:49 Dysuria 14090439 Completed 01/22/2019 [facility] 08:47:52 Low back pain 215497431 Active Yasmany Ferreira MD [address] [place] [address], , [facility] 5 17:48:55 Anxiety 39585102 Active Jim Almendarez MD [address] [place] [address], , [facility] 5 17:40:11 Dermoid cyst of skin Active Jim Almendarez MD [address] [place] [address], , [facility] 5 17:40:11 Herpes labialis 0445812 Active 2016 Samreen Case MD [address] [place] [address], , [facility] 7 10:38:53 Suspected COVID-19 732740547 Active 2020 Samreen Case MD [address] [place], [address] , [facility] 1 16:45:09 Problem Notes None recorded. Procedures Surgical History Date Name Laterality Status Provider Name and Address Organization Details Recorded Time Hernia repair completed Not Available [facility] 03/30/2011 03:44:01 Imaging Results None recorded. Procedure Notes None recorded. Medical Equipment None Reported. Allergies No known drug allergies Medications Name Sig Start Date Stop Date Status Note LastModified by Organization Details LastModified Time fluoxetine 40 mg capsule TAKE ONE CAPSULE BY MOUTH EVERY MORNING active Not Available Not Available No t Available amoxicillin 500 mg capsule TAKE 2 CAPSULE(S ) TWICE A DAY BY ORAL ROUTE FOR 14 DAYS. active Not Available Not Available No t Available Augmentin 875 mg-125 mg tablet Take 1 tablet every 12 hours by oral route for 10 days. 03/29 completed Not Available Not Available Not Available azithromyci n 250 mg tablet TAKE 2 TABLETS BY MOUTH TODAY, THEN TAKE 1 TABLET DAILY FOR 4 DAYS 08/25 completed Not Available Not Available Not Available valacyclovi r 1 gram tablet TAKE 2 TABLETS BY MOUTH EVERY 12 HOURS FOR 1 DAY 02/23 completed Not Available Not Available Not Available cephalexin 250 mg capsule active Not Available Not Available Not Available fluoxetine 10 mg tablet active Not Available Not Available Not Available penicillin V potassium 500 mg tablet Take 1 tablet twice a day by oral route for 10 days. active Not Available Not Available No t Available amoxicillin 250 mg chewable tablet active Not Available Not Available Not Available ofloxacin 0.3 % ear drops Instill 5 drops twice a day by otic route for 5 days. 07/10 completed Not Available Not Available Not Available Concerta 54 mg tablet,exte nded release Take 1 tablet every day by oral route for 30 days. 09/11 completed Not Available Not Available Not Available cephalexin 500 mg capsule TAKE 1 CAPSULE(S ) EVERY 12 HOURS BY ORAL ROUTE FOR 7 DAYS. 05/24 completed Not Available Not Available Not Available fluoxetine 20 mg tablet TAKE 3 TABLETS BY MOUTH EVERY DAY 01/22 completed Not Available Not Available Not Available clotrimazol e-betametha sone 1 %-0.05 % topical cream active Not Available Not Available Not Available Concerta 36 mg tablet,exte nded release Take 1 tablet every day by oral route for 30 days. 10/24 completed Not Available Not Available Not Available polymyxin B sulfate 10,000 unit-trimet hoprim 1 mg/mL eye drops INSTILL 1 DROP INTO AFFECTED EYE(S) BY OPHTHALMI C ROUTE TID 12/19 completed Not Available Not Available Not Available methylpheni date ER 20 mg tablet,exte nded release active Not Available Not Available Not Available fluoxetine 10 mg capsule TAKE 1 CAPSULE BY MOUTH EVERY DAY 08/21 completed Not Available Not Available Not Available omeprazole 20 mg capsule,del ayed release Take 1 capsule every day by oral route. 2018 active Not Available Not Available Not Avai lable Adderall XR 10 mg capsule,ext ended release Take 1 capsule every day by oral route for 30 days. 11/12 completed Not Available Not Available Not Available amoxicillin 400 mg/5 mL oral suspension Take 10 mL twice a day by oral route for 10 days. active Not Available Not Available No t Available ibuprofen 600 mg tablet active Not Available Not Available Not Available methylpheni date ER 18 mg tablet,exte nded release 24 hr Take 1 tablet every day by oral route in the morning. active Not Available Not Available No t Available fluoxetine 20 mg capsule TAKE 3 CAPSULE(S ) EVERY DAY BY ORAL ROUTE FOR 30 DAYS. 10/26 completed Not Available Not Available Not Available fluticasone propionate 50 mcg/actuati on nasal spray,suspe nsion USE 1 SPRAY(S) IN EACH NOSTRIL EVERY DAY 05/29 completed Not Available Not Available Not Available medroxyprog esterone 150 mg/mL intramuscul ar suspension INJECT 1 ML EVERY 3 MONTHS BY INTRAMUSC ULAR ROUTE DIRECTED FOR 360 DAYS. active Not Available Not Available No t Available hydroxyzine pamoate 25 mg capsule TAKE 1 TO 2 TABS TWICE A DAY NEEDED THEN TAKE 2 TO 3 TABS NEEDED AT 6-7 PM FOR SLEEP active Not Available Not Available No t Available Denta 5000 Plus 1.1 % cream 01/20 completed Not Available Not Available Not Available escitalopra m 10 mg tablet TAKE 1 TABLET BY MOUTH EVERY DAY active Not Available Not Available No t Available moxifloxaci n 0.5 % eye drops INSTILL 1 DROP INTO AFFECTED EYE(S) BY OPHTHALMI C ROUTE 3 TIMES PER DAY 12/19 completed Not Available Not Available Not Available Klor-Con M20 mEq tablet,exte nded release 10/11 completed Not Available Not Available Not Available nitrofurant oin monohydrate /macrocryst als 100 mg capsule active Not Available Not Available Not Available chlorhexidi ne gluconate 0.12 % mouthwash active Not Available Not Available No t Available Depo-Stack Supervisor a 02/23 completed Not Available Not Available Not Available fluoxetine 60 mg tablet Take 1 tablet every day by oral route for 30 days. 08/25 completed Not Available Not Available Not Available Diclegis 10 mg-10 mg tablet,vianca yed release TAKE 2 TABLETS BY MOUTH AT BEDTIME 04/22 completed Not Available Not Available Not Available Vitals Date Recorded Body height Body mass index (BMI) Body mass index (BMI) Percentile per age and sex Body weight Systolic blood pressure Diastolic blood pressure Provider Name and Address Organization Details Last Updated DateTime 9 168.91 cm 22.2 kg/m2 57 % 87884.4 9 g 100 mm[Hg] 60 mm[Hg] Shilpi meza C.M.A. [facility] 9 15:36:17 Date Recorded Body height Body mass index (BMI) Percentile per age and sex Body mass index (BMI) Body weight Systolic blood pressure Diastolic blood pressure Provider Name and Address Organization Details Last Updated DateTime 0 168.91 cm 51 % 21.8 kg/m2 34281.1 5 g 110 mm[Hg] 62 mm[Hg] Tiffani Yousif RN [facility] 0 16:21:54 Date Recorded Body height Body mass index (BMI) Body mass index (BMI) Percentile per age and sex Body weight Systolic blood pressure Diastolic blood pressure Provider Name and Address Organization Details Last Updated DateTime 0 168.91 cm 23.1 kg/m2 64 % 30252.0 5 g 110 mm[Hg] 60 mm[Hg] Shani León [facility] 0 15:16:52 Date Recorded Body height Body mass index (BMI) Percentile per age and sex Body mass index (BMI) Body weight Systolic blood pressure Diastolic blood pressure Provider Name and Address Organization Details Last Updated DateTime 1 168.91 cm 23 % 19.7 kg/m2 42807.1 7 g 104 mm[Hg] 70 mm[Hg] Bina Donnelly R.N. [facility] 1 12:53:55 Social History Question Answer Notes LastModified by Organizat ion Details LastModified Time Tobacco Smoking Status [facility] 12/06/2013 11:40:54 Have There Been Any Changes To Your Family Or Social Situation? No Information not available 04/22/2018 Hard Of Hearing Or Deaf In One Or Both Ears? No Information not available 04/22/2018 Legally Blind In One Or Both Eyes? No Information not available 04/22/2018 Parent's Marital Status Information not available 10/22/2012 Home Situation Mother Information not available 03/30/2011 Siblings 0 [email or web address] Information not available 03/30/2011 Year In School College Taking spring Off [email or web address] Information not available 06/15/2019 Parent's Name Rodrick Solis [email or web address] Information not available 03/30/2011 Parent's Name Morales Atwood --sees Dad Regularly [email or web address] Information not available 03/30/2011 VFC Eligibility No Informati on not available 05/02/2015 What Was The Date Of Your Most Recent Tobacco Screening? 04/22/2018 Information not available 12/17/2018 Are You Passively Exposed To Smoke? No slevin Information not available 12/08/2014 Have You Recently Traveled Abroad? No Information not available 08/21/2020 Sex: Unknown Functional Status None recorded. Mental Status None recorded. Family History Relationship Description Onset Age of this Age Resolved Age Notes LastModified by Organization Details LastModified Time Mother Problem anxiet y slevin Not available 03/14/2015 16:38:06 Mother Problem Maybe LD slevin Not available 03/14/2015 16:38:06 Mother Allergy slevin Not available 16:38:06 Maternal Grandmother Hypercholest erolemia previo usly record ed as Elevat ed Choles terol slevin Not available 03/14/2015 16:38:06 Father Allergy previo usly record ed as Allerg ies slevin Not available 03/14/2015 16:38:06 Father Problem ADHD slevin Not available 16:38:06 Notes:Updated verbally Medical History Condition Response ADHD Y PSYCH PROBLEMS Y Gynecological History Statement/Question Response N Depo-Provera Date of LMP 07/12/2020 Age at onset of periods 11 yrs 01/04/2016 Obstetrics History GPAL:G 0 P 0 0 0 0 Immunizations Vaccine Type Date Status Note Provider Name and Address Organization Details Recorded Time Tdap 09/26/19 12 completed Not Available [facility] 06/12/2019 02:33:45 meningococcal MCV4P 09/26/19 12 completed Not Available [facility] 06/12/2019 02:33:30 IPV 09/25/19 01 completed Not Available [facility] 03/30/2011 03:19:09 Hep B, adolescent or pediatric 10/25/19 00 completed Not Available [facility] 03/30/2011 03:19:09 Hib, unspecified formulation 04/03/20 00 completed Not Available [facility] 03/30/2011 03:19:09 DTaP 04/03/20 00 completed Not Available [facility] 03/30/2011 03:19:09 MMR 01/06/20 01 completed Not Available [facility] 03/30/2011 03:19:09 Hep B, adolescent or pediatric 07/02/19 01 completed Not Available [facility] 03/30/2011 03:19:09 DTaP 01/30/20 00 completed Not Available [facility] 03/30/2011 03:19:09 MMR 09/22/19 05 completed Not Available [facility] 03/30/2011 03:19:09 DTaP 11/28/19 00 completed Not Available [facility] 03/30/2011 03:19:09 pneumococcal conjugate PCV 7 01/06/20 01 completed Not Available [facility] 03/30/2011 03:19:09 pneumococcal conjugate PCV 7 04/03/20 00 completed Not Available [facility] 03/30/2011 03:19:09 Hib, unspecified formulation 01/30/20 00 completed Not Available [facility] 03/30/2011 03:19:09 DTaP 04/22/20 01 completed Not Available [facility] 03/30/2011 03:19:09 IPV 11/28/19 00 completed Not Available [facility] 03/30/2011 03:19:09 IPV 10/12/19 04 completed Not Available [facility] 03/30/2011 03:19:09 pneumococcal conjugate PCV 7 07/02/19 01 completed Not Available [facility] 03/30/2011 03:19:09 pneumococcal conjugate PCV 7 09/25/19 01 completed Not Available [facility] 03/30/2011 03:19:09 Hep B, adolescent or pediatric 09/17/19 00 completed Not Available [facility] 03/30/2011 03:19:09 Hib, unspecified formulation 01/06/20 01 completed Not Available [facility] 03/30/2011 03:19:09 DTaP 09/22/19 05 completed Not Available [facility] 03/30/2011 03:19:09 varicella 09/25/19 01 completed Not Available [facility] 03/30/2011 03:19:09 IPV 01/30/20 00 completed Not Available [facility] 03/30/2011 03:19:09 Hib, unspecified formulation 11/28/19 00 completed Not Available [facility] 03/30/2011 03:19:09 Influenza, split virus, trivalent, PF 06/19/19 13 completed Not Available [facility] 06/12/2019 02:35:32 varicella 02/05/20 13 completed Not Available [facility] 06/12/2019 02:33:14 HPV, quadrivalent 12/07/19 14 completed Not Available [facility] 06/12/2019 02:34:13 HPV9 12/09/19 15 completed Not Available [facility] 06/12/2019 02:36:10 HPV9 04/25/20 15 completed Not Available [facility] 06/12/2019 02:36:28 meningococcal MCV4P 01/08/20 16 completed Not Available [facility] 06/12/2019 02:36:55 Influenza, split virus, quadrivalent, PF 04/22/20 18 completed Not Available [facility] 06/12/2019 02:38:38 meningococcal B, OMV 06/15/19 20 completed Tiffani Yousif RN null, [facility] 06/15/2019 16:47:14 Hep A, adult 08/22/19 21 cancelled patient objection Jim Almendarez MD [address] [facility], [place], [address], [facility] 08/21/2020 13:07:34 Influenza, split virus, quadrivalent, PF 08/22/19 21 cancelled patient objection Jim Almendarez MD [address] [facility], [place], [address], [facility] 08/21/2020 13:07:34 meningococcal B, OMV 08/22/19 21 [facility]/21/2020 13:15:22 Past Encounters Encounter ID Performer Location Encounter Start Date Encounter Closed Date Diagnosis/Indication Diagnosis SNOMED-CT Code Diagnosis ICD10 Code Diagnosis Note [id number] [facility] w [address] [place] [id number] 4 01/17/2011 15:01:46 01/17/2011 18:01:55 [id number] [facility] w [address] [place] [id number] 4 01/25/2011 14:57:33 01/25/2011 17:09:20 [id number] P[facility] w [address] [place] [id number] 4 02/14/2011 16:24:35 02/14/2011 17:52:04 [id number] [facility] [address] [place] [id number] 4 03/05/2011 13:42:50 03/05/2011 17:08:42 [id number] P[facility] w [address] [place] [id number] 4 04/19/2011 15:28:47 04/19/2011 17:18:42 [id number] PVP [address] [id number] 06/02/2011 11:38:01 06/02/2011 13:08:26 [id number] P[facility] w [address] [place] [id number] 4 06/18/2011 15:24:36 06/18/2011 18:21:57 [id number] P[facility] [address] [place] [address] 07/05/2011 14:21:59 07/05/2011 16:44:14 [id number] [facility] w [address] [place] [id number] 4 07/30/2011 16:18:29 07/30/2011 16:51:21 [id number] [facility] [address] [place] [id number] 4 09/26/2011 13:57:07 09/26/2011 17:37:13 [id number] Jim Almendarez MD [facility] [address] [place] [id number] 4 03/12/2012 13:00:43 03/12/2012 14:44:59 [id number] Jim Almendarez MD [facility] [address] [place] [id number] 4 03/16/2012 15:30:00 03/16/2012 16:49:14 [id number] Jim Almendarez MD [facility] [address] [place] [id number] 4 03/19/2012 14:28:25 03/19/2012 15:36:23 [id number] Jim Almendarez MD [facility] [address] [place] [id number] 4 10/22/2012 15:53:40 10/22/2012 18:17:20 [id number] Nasima Valera MD [facility] [address] [place] [id number] 4 02/04/2013 15:51:00 02/04/2013 16:07:06 Varicella vaccination 72212355 Shot only visit Varivax [id number] Savita White [facility] [address] [place] [id number] 4 03/23/2013 14:02:19 03/23/2013 15:11:59 Anxiety state 543438496 Obsessive- compulsive disorder 133011218 Headache 77377642 [id number] [facility] w [address] [place] [address] 09/23/2013 08:38:42 09/23/2013 09:08:52 Acute pharyngitis 486646838 [id number] [facility] [address] [id number] 12/06/2013 11:31:22 12/06/2013 12:36:04 Well child 895283750 Anxiety state 470574014 [id number] Savita White [address] [address] 06/02/2014 10:02:40 06/02/2014 10:38:22 Sinusitis 83950177 [id number] [facility] Aditya[address] [address] 09/05/2014 16:53:09 09/05/2014 17:50:47 Dysuria 65641290 Low back pain 720461141 Back pain more prominent than abd pain - ? muscular strain. No CVA tenderness . No blood on Udip to suggest nephrolith iasis. Will check urine for UTI, watch progressio n of sx and recheck if worsening, dev fevers or other concerns. [id number] [facility] Chloe [address] [address] 12/08/2014 15:15:51 12/08/2014 17:21:13 Well child 366985785 [id number] Jim Almendarez MD [address] [id number] 03/14/2015 16:25:39 03/14/2015 17:40:48 Anxiety 20100201 F41.9 Dermoid cyst of skin 276 568916 D23.9 [id number] Mateo Cameron [address] [address] 04/25/2015 16:09:14 04/25/2015 16:21:54 Active or passive immunization 377702459 Z23 [id number] Jim Almendarez MD [address] [address] 10/05/2015 13:25:30 10/05/2015 14:06:33 Anxiety 33482453 F41.9 [id number] Jim Almendarez MD [address] [address] 10/27/2015 16:03:30 10/27/2015 17:05:45 Upper respiratory infection 84372888 J06.9 [id number] Jim Almendarez MD [address] [address] 4 01/08/2016 15:44:37 01/08/2016 17:05:11 Well child 939883684 Z00.129 Active or passive immunization 913224725 Z23 Anxiety state 171925581 F41.1 [id number] Jim Almendarez MD [address] [address] 4 05/24/2016 10:16:49 05/24/2016 11:02:34 Anxiety state 008630086 F41.1 [id number] Samreen Case MD [address] [address] 05/29/2016 11:30:00 05/29/2016 12:55:20 Acute pharyngitis 574159170 J02.9 Pneumonia 537562992 J18. 9 [id number] Samreen Case MD [address] [address] 08/25/2016 09:04:45 08/25/2016 10:04:34 Acute pharyngitis 906151118 J02.9 Fever 645618968 R50.9 Herpes labialis 2675152 B00.1 Viral syndrome 308902998 B34.9 [id number] Jim Almendarez MD [address] [address] 4 01/20/2017 16:02:09 01/20/2017 17:15:02 Well child 589337458 Z00.129 Anxiety state 734129312 F41.1 [id number] Jim Almendarez MD [address] [address] 4 07/17/2017 15:10:12 07/17/2017 17:22:30 Anxiety 85411179 F41.9 Education about sexually transmitted disease prevention 578202230 Z70.8 [id number] Samreen Case MD [address] [address] 4 08/19/2017 10:28:32 08/19/2017 13:45:24 Acute pharyngitis 736421414 J02.9 Acute conjunctivitis 537 12672 H10.33 [id number] Jim Almendarez MD [address] [address] 4 12/19/2017 08:44:55 12/19/2017 12:52:31 Abdominal pain 02926951 R10.9 [id number] Jim Almendarez MD [address] [address] 4 04/22/2018 16:23:05 04/22/2018 17:50:35 Adult health examination 387516984 Z00.00 Normal bod y mass index 94297725 Z68.23 Anxiety state 564860009 F41.1 Active or passive immunization 639527342 Z23 [id number] Harmony Zarate [address] [address] 01/22/2019 12:44:26 01/22/2019 13:41:36 Night sweats 31233652 R61 Unintentio nal weight loss 300096336 R63.4 Recurrent herpes simplex labialis 153428433 B00.1 Abdominal pain 90725611 R10.9 Malaise and fatigue 2717 37693 R53.83 Substance abuse 16830852 F19.10 Proteinuria 87366338 R80 .9 [id number] Jim Almendarez MD [address] [address] 02/23/2019 09:54:27 02/23/2019 11:39:04 Anxiety 06153585 F41.9 Sleep disorder 28771157 G47.9 Gastritis 2355262 K29.70 [id number] Jim Almendarez MD [address] [address] 03/10/2019 15:27:00 03/10/2019 17:00:59 Anxiety 01434882 F41.9 Gastritis 7846708 K29.70 [id number] Jim Almendarez MD [address] [address] 06/15/2019 16:06:30 06/15/2019 17:09:01 Active or passive immunization 243353503 Z23 Adult heal th examination 466517258 Z00.00 Normal bod y mass index 14038512 Z68.21 [id number] Jim Almendarez MD [address] [address] 12/06/2019 15:09:43 12/06/2019 15:44:16 Anxiety 09165253 F41.9 [id number] Jim Almendarez MD [address] [address] 08/21/2020 12:45:00 08/21/2020 13:20:09 Active or passive immunization 507522298 Z23 Adult heal th examination 213092548 Z00.00 Diet education 14431957 Z71.3 Exercises education, guidance, and counseling 522472680 Z71.82 Normal bod y mass index 63298901 Z68.1 Anxiety 41281045 F41.9 [id number] Samreen Case MD [address] [address] 10/11/2020 16:26:55 10/12/2020 14:38:14 Streptococcal sore throat 40525320 J02.0 Hypertroph y of tonsils 64235516 J35.1 Snoring 79010218 R06.83 Anxiety 87974134 F41.9 Health Concerns Section Related Observation LastModified by Organization Detai ls LastModified Time None Recorded Concern Status LastModified by Organization Details LastModified Time None Recorded Advance Directives Directive None Recorded Payers Encounter Date Sequence Insurance Name Policy Number Policy Godoson Covered Member ID Goodson Member ID Guarantor Name 03/10/2019 1 [place] [facility] [id number] Yen Atwood [id number] Maddie Will 06/15/2019 1 [place] [facility] [id number] Yen Atwood [id number] Maddie Will 12/06/2019 1 [place] [facility] [id number] Yen Atwood [id number] Maddie Will 08/21/2020 1 [place] [facility] [id number] Yen Atwood [id number] Maddie Catino 10/11/2020 1 [facility] [id number] Yen Atwood [id number] Maddie Will Notes Date Note Type Note Provider Name and Address Organization Details Recorded Time 03/10/2019 text/html Here for anxiety recheck. Taking 10 mg of escitalopram Q day. Pt feels dosage working well. No side effects-appetite and sleeping nl.Doing much better. Is doing much better. back at work. Eating better. sleeping better. No SI. Does contract for safetyIs doing better. Does have appt with Dr Hernandez in a couple monthsAlso stopped juul and dab pen. Just smoking reg pot daily.No neg side effects.Also was having abd discomfort from the anxiety. stomach is much better.Also in the process of getting a therapist Jim Almendarez MD [address] [place] [address], , [facility] 03/10/2019 17:00:43 12/06/2019 text/html Pt and Mom/Dad a re afebrile. No ill symptoms in >10 days. No known Covid 19 exposure.Patient here for anxiety recheck; on Escitalopram 10mg. States she is very happy with the medication and that it is working well. No side effects.Was in therapy about weekly then covid. Doing well on lexapro. Med helps. Works at [employer]. planed to return to school but covid. Lives with mom. Good relations with mom. No SI. Anxiety under good control. Smokes pot 2-3 times a week. Jim Almendarez MD [address], [place], , [facility] 12/06/2019 15:43:59 08/21/2020 text/html Pt afebrile. No ill symptoms in >10 days. No known Covid 19 exposure. No travel out of [place] in > 2 weeks. Jim Almendarez MD [address] [place] [address], , [facility] 08/21/2020 13:14:06 10/11/2020 text/html RS Sick Visit Narrative HistoryReported bypatient.Notes:Dry cough, bilat ear pain, ST, nasal congestion & myalgias began yesterday. Feels like throat is swelling and has hard time breathing. No ear drainage. Denies rash. No VASQUEZ. No abd pain. No N/V/D. Afebrile. Decreased energy. Not sleeping well, but cough not interrupting sleep. Not eating or drinking much d/t sore throat, difficulty swallowing. Had Advil last night, with some relief. Had Mucinex and used nasal spray this AM, with no relief.Had to put her dog down as well so has been crying excessively and body aches may be due to this.Family vaccinated but pt has declined.PMH has had [place] in past; told by oral surgeon her tonsils were abnormally large and pt does have mild snoring/no apnea Samreen Case MD [address] [place] [address], [phone], [facility] 10/12/2020 03:42:21 OBGyn Episode No OBEpisode recorded.
--- OUTSIDE RECORDS SUMMARY | 2024-07-22 16:32 | XMS_ITS | Clinical Summary ---
Author Organization [facility] Address [address] [place] [address] Care Team Providers Care International Marketing Specialist Name Role Phone Lawrence Mascorro MD Primary Care Provider Allergies No known active allergies Medications Medication Sig Dispensed Refills Start Date End Date Status mirtazapine (REMERON) 7.5 MG tablet Take 7.5 mg by mouth every night at bedtime. 0 Active polyethylene glycol (MIRALAX) 17 g packet Take 17 g by mouth daily. 0 Active estradiol cypionate (Depo-Estradiol) 5 MG/ML injection Inject into the muscle every 28 days. 0 Active Active Problems No known active problems Family History Relation Name Status Comments Father Alive Mother Alive Social History Tobacco Use Types Packs/Day Years Used Date Smoking Tobacco: Never Smokeless Tobacco: Never Alcohol Use Standard Drinks/Week Comments Yes 0 (1 standard drink = 0.6 oz pur e alcohol) Sex and Gender Information Value Date Recorded Sex Assigned at Not on file Gender Identity Not on file Sexual Orientation Not on file Job Start Date Occupation Industry Not on file Not on file Not on file Last Filed Vital Signs Vital Sign Reading Time Taken Comments Blood Pressure 110/55 06/07/2021 8:41 AM EST Pulse 56 06/07/2021 8:41 AM EST Temperature 36.7 ??C (98 ??F) 06/07/2021 8:41 AM EST Respiratory Rate - - Oxygen Saturation 99% 06/07/2021 8:41 AM EST Inhaled Oxygen Concentration - - Weight 54.4 kg (120 lb) 06/07/2021 8:41 AM EST Height 167.6 cm (5' 6 ) 06/07/2021 8:41 AM EST Body Mass Index 19.37 06/07/2021 8:41 AM EST Plan of Treatment Health Maintenance Due Date Last Done Comments Hepatitis B Vaccines (1 of 3 - 3-dose series) 1999 Hepatitis C Screening 1999 COVID-19 Vaccine (#1) 03/16/2000 DTap / Tdap / Td (6 - Tdap) 09/14/201008/25, 04/22/2001, 04/03/2000, Additional history exists Depression Screening 2011 Gonorrhea and Chlamydia Screening 09/14/2012 Preventative Health Evaluation 09/14/2017 Cervical Cancer Screening (Pap Smear) 09/14/2020 Influenza Vaccine (#1) 2024 Pneumococcal Vaccine Completed 01/05/2001, 09/24/2000, 07/02/2000, Additional history exists RSV Ped < 20 months Aged Out No longe r eligible based on patient's age to complete this topic Care Teams International Marketing Specialist Relationship Specialty Start Date End Date Lawrence Mascorro MD [address] [place] [id number] PCP - General Internal Medicine 05/10/21
--- OUTSIDE RECORDS SUMMARY | 2024-07-22 16:32 | XMS_ITS | Patient Health Record ---
Author Organization [facility] Address [address] [facility] [place] [address] Care Team Providers Care Card Reader Name Role Phone JOHNNY BAIG Unavailable [phone] ALLERGIES No Known Allergies REASON FOR REFERRAL No Information MEDICATIONS Medication SIG (Take, Route, Fr equency, Duration) Notes Start Date End Date Status Mirtazapine 7.5 MG 1 tablet at bedtime Orally Once a day Active Depo-Estradiol 5 MG/ML 1 ml Intramuscular Active Lexapro 20 MG 1 tablet Orally Once a day Active SOCIAL HISTORY Tobacco Use: Social History Observation Description Date Details (start date - stop date) Current Smoker NA - NA Sex Assigned At : Social History Observation Description Sex Assigned At Unknown Tobacco Use/Smoking Question Answer Notes Are you a current smoker How often do you smoke cigarettes? every day Section Notes: vape nicotine vape and smoke marijuana vape and smoke marijuana vape nicotine vape and smoke marijuana PROBLEMS Problem Type ICD Code Onset Dates Problem Status W/U Status Risk SNOMED Code Notes Problem Other fatigue (R53.83) Active confirmed 60604369 Problem Encounter for general adult medical examination without abnormal findings (Z00.00) Active confirmed 964088692 Problem Hyperlipidemia, unspecified hyperlipidemia type (E78.5) Active confirmed 40575623 Problem Anxiety (F41.9) Active confirmed Anxiet y (52727864) Problem Vitamin D deficiency (E55.9) Active confirmed 72158324 Problem Screening for diabetes mellitus (Z13.1) Active confirmed 956566966 Problem Epigastric abdominal pain (R10.13) Active confirmed 99118210 Problem Weight loss, abnormal (R63.4) Active confirmed 390843699 Encounters Encounter Location Date Provider Diagnosis [facility] [address] [place] [address] 11/05/2023 JOHNNY BAIG PLAN OF TREATMENT Pending Test Test Name Order Date 25OH VITAMIN D 04/06/2021 CBC (COMPLETE BLOOD COUNT) 04/06/2021 COMPREHENSIVE METABOLIC PANEL 04/06/2021 H. PYLORI UREA BREATH TEST 05/07/2021 HEMOGLOBIN A1C 04/06/2021 INSULIN, FREE 04/06/2021 LIPID PANEL 04/06/2021 T3, FREE 04/06/2021 T4, FREE 04/06/2021 TSH 04/06/2021 QUANTIFERON TB GOLD PLUS 04/06/2021 Insurance Providers Payer Name Payer Address Payer Phone Subscriber Number Group Number Insured Name Patient Relationship to Insured Coverage Start Date Coverage End Date [facility] [address] [place] [address] [phone] [id number] Yazmin Atwood Self - patient is the insured
== END 2024-07-22 13:44 | disposition home or self-care (01) ==
LOC: HO.HOP 13:44
PROVIDERS: PCP Internal Medicine; Visit Provider Clinical Nurse Specialist Psychiatric/Mental Health
DX: F42.2 Mixed obsessional thoughts and acts (principal)
CPT/HCPCS: 99214

== ENCOUNTER → 2024-07-22 13:44 | Outpatient (BNVA) | payer OTHER, SELFPAY | PROVIDERS: PCP Internal Medicine; Visit Provider Clinical Nurse Specialist Psychiatric/Mental Health ==

== ENCOUNTER 2024-09-02 13:58 | Outpatient (AMB) | payer OTHER, SELFPAY ==
--- OUTSIDE RECORDS SUMMARY | 2024-09-02 16:50 | XMS_ITS | Data Portability ---
Author Organization [place] - [facility], [facility] Address [address] [place] [address] Assessment Encounter Date Assessment Date Assessment LastModified [...] needed- no SI STD screening done at [facility] 2 months ago and not sex active [...] Not in therapy STD screening done at [facility] 1 months ago jyunis Not available 08/21/2020 [...] strep group A, throat 2020 021 crystal [facility], [address] [place] [address], [phone], 17:09:38 Referral None recorded. Procedures None recorded. Surgeries None recorded. Imaging None recorded. Medication Orders amoxicillin 400 mg/5 mL oral suspension 2020 021 [facility] #[id number], [address] [place], [address], 03:30:53 Patient TargetsNo targets recorded. Patient Instructions Encounter Date Encounter Id Patient Instructions Last Modified By Organization Details Last Modified Time 06/15/2019 [id number] program - 5 fruits & veggies jyunis Not available 06/15/2019 16:39:08 [id number] program - 1 hour of exercise jyunis Not available 06/15/2019 16:39:07 patient health questionnaire depression assessment* jyunis Not available 06/15/2019 17:08:07 immunization: wh at you need to know jyunis Not available 06/15/2019 16:39:07 08/21/2020 [id number] program - 5 fruits & veggies jyunis [...] sment * PHQ-9 negati ve Not Available [facility] [address] [place] [address], [phone], 06/15/2019 15:27:51 08/22/19 21 08/21/2020 patie nt healt [facility] quest ionna meghan otis small * PHQ-9 negati ve Not Available [facility] [address] [place] [address], [phone], 08/21/2020 08:26:48 10/12/19 21 10/11/2020 rapid strep group A, throa t Rapid Strep positi ve Not Available [facility] [address] [place] [address], [address], 10/11/2020 16:28:23 Result Notes None recorded. Problems Name Problem SNOMED Code Status Onset Date Resolution Date Notes Provider Name and Address Organization Details Recorded Time Abdominal pain 17717417 Completed 09/26/2011 Not Available [facility] 3 03:02:28 Pneumonia 788285944 Completed 10/22/2012 Not Available [facility] 3 03:02:28 Viral disease 52137207 Completed 10/22/2012 Not Available [facility] 3 03:02:28 Constipati on 04980630 Completed 09/26/2011 Not Available [facility] 3 03:02:28 Child attention deficit disorder 527552952 Completed 12/06/2013 Jim Almendarez MD [address] [place] [address], , [facility] 4 11:47:43 Otitis externa 3533314 Completed 09/26/2011 Not Available [facility] 3 03:02:28 Acute pharyngiti s 824085199 Completed 09/26/2011 Not Available [facility] 3 03:02:28 Anxiety state 135929726 Active Jim Almendarez MD [address] [place] [address], , [facility] 5 17:22:58 Developmen florinda academic disorder 4927663 Completed 12/06/2013 Jim Almendarez MD [address] [place] [address], , [facility] 4 12:35:36 Malaise and fatigue 562248607 Completed 09/26/2011 Not Available [facility] 3 03:02:28 Obsessive- compulsive disorder 940051581 Active Jim Almendarez MD [address] [place] [address], , [facility] 3 15:11:33 Headache 54621310 Completed 12/06/2013 Jim Almendarez MD [address] [place] [address], , [facility] 4 11:47:43 Acute pharyngiti s 533181322 Completed 12/06/2013 Jim Almendarez MD [address] [place] [address], , [facility] 4 11:47:43 Sinusitis 82294320 Completed 01/22/2019 [facility] 08:47:49 Dysuria 65775394 Completed 01/22/2019 [facility] 9 08:47:52 Low back pain 934990477 Active Yasmany Ferreira MD [address] [place] [address], , [facility] 5 17:48:55 Anxiety 89993586 Active Jim Almendarez MD [address] [place] [address], , [facility] 5 17:40:11 Dermoid cyst of skin Active Jim Almendarez MD [address] [place] [address], , [facility] 5 17:40:11 Herpes labialis 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 Procedures Surgical History Date Name Laterality Status Provider Name and Address Organization Details Recorded Time Hernia repair completed Not Available [facility] 03/30/2011 03:44:01 Imaging Results None recorded. Procedure [...] Not Available Not Available No t Available Depo-Nicker a 02/23 completed Not Available Not Available [...] 9 168.91 cm 22.2 kg/m2 57 % 96761.4 9 g 100 mm[Hg] 60 mm[Hg] Shilpi meza C.M.A. [facility] 9 15:36:17 Date Recorded Body height Body mass index (BMI) Percentile per age and sex Body mass index (BMI) Body weight Systolic blood pressure Diastolic blood pressure Provider Name and Address Organization Details Last Updated DateTime 0 168.91 cm 51 % 21.8 kg/m2 09068.1 5 g 110 mm[Hg] 62 mm[Hg] Tiffani Yousif RN [facility] 0 16:21:54 Date Recorded Body height Body mass index (BMI) Body mass index (BMI) Percentile per age and sex Body weight Systolic blood pressure Diastolic blood pressure Provider Name and Address Organization Details Last Updated DateTime 0 168.91 cm 23.1 kg/m2 64 % 73979.0 5 g 110 mm[Hg] 60 mm[Hg] Shani León [facility] 0 15:16:52 Date Recorded Body height Body mass index (BMI) Percentile per age and sex Body mass index (BMI) Body weight Systolic blood pressure Diastolic blood pressure Provider Name and Address Organization Details Last Updated DateTime 1 168.91 cm 23 % 19.7 kg/m2 75937.1 7 g 104 mm[Hg] 70 mm[Hg] Bina Donnelly R.N. [facility] 1 12:53:55 Social History Question Answer Notes LastModified by Organizat ion Details LastModified Time Tobacco Smoking Status Never [facility]oker [facility] 12/06/2013 11:40:54 Have There Been [...] Time Tdap 09/26/19 12 completed Not Available [facility] 06/12/2019 02:33:45 meningococcal MCV4P 09/26/19 12 completed Not Available [facility] 06/12/2019 02:33:30 IPV 09/25/19 01 completed Not Available [facility] 03/30/2011 03:19:09 Hep B, adolescent or pediatric 10/25/19 00 completed Not Available [facility] 03/30/2011 03:19:09 Hib, unspecified formulation 04/03/20 00 completed Not Available [facility] 03/30/2011 03:19:09 DTaP 04/03/20 00 completed Not Available [facility] 03/30/2011 03:19:09 MMR 01/06/20 01 completed Not Available [facility] 03/30/2011 03:19:09 Hep B, adolescent or pediatric 07/02/19 01 completed Not Available [facility] 03/30/2011 03:19:09 DTaP 01/30/20 00 completed Not Available [facility] 03/30/2011 03:19:09 MMR 09/22/19 05 completed Not Available [facility] 03/30/2011 03:19:09 DTaP 11/28/19 00 completed Not Available [facility] 03/30/2011 03:19:09 pneumococcal conjugate PCV 7 01/06/20 01 completed Not Available [facility] 03/30/2011 03:19:09 pneumococcal conjugate PCV 7 04/03/20 00 completed Not Available [facility] 03/30/2011 03:19:09 Hib, unspecified formulation 01/30/20 00 completed Not Available [facility] 03/30/2011 03:19:09 DTaP 04/22/20 01 completed Not Available [facility] 03/30/2011 03:19:09 IPV 11/28/19 00 completed Not Available [facility] 03/30/2011 03:19:09 IPV 10/12/19 04 completed Not Available [facility] 03/30/2011 03:19:09 pneumococcal conjugate PCV 7 07/02/19 01 completed Not Available [facility] 03/30/2011 03:19:09 pneumococcal conjugate PCV 7 09/25/19 01 completed Not Available [facility] 03/30/2011 03:19:09 Hep B, adolescent or pediatric 09/17/19 00 completed Not Available [facility] 03/30/2011 03:19:09 Hib, unspecified formulation 01/06/20 01 completed Not Available [facility] 03/30/2011 03:19:09 DTaP 09/22/19 05 completed Not Available [facility] 03/30/2011 03:19:09 varicella 09/25/19 01 completed Not Available [facility] 03/30/2011 03:19:09 IPV 01/30/20 00 completed Not Available [facility] 03/30/2011 03:19:09 Hib, unspecified formulation 11/28/19 00 completed Not Available [facility] 03/30/2011 03:19:09 Influenza, split virus, trivalent, PF 06/19/19 13 completed Not Available [facility] 06/12/2019 02:35:32 varicella 02/05/20 13 completed Not Available [facility] 06/12/2019 02:33:14 HPV, quadrivalent 12/07/19 14 completed Not Available [facility] 06/12/2019 02:34:13 HPV9 12/09/19 15 completed Not Available [facility] 06/12/2019 02:36:10 HPV9 04/25/20 15 completed Not Available [facility] 06/12/2019 02:36:28 meningococcal MCV4P 01/08/20 16 completed Not Available [facility] 06/12/2019 02:36:55 Influenza, split virus, quadrivalent, PF 04/22/20 18 completed Not Available [facility] 06/12/2019 02:38:38 meningococcal B, OMV 06/15/19 20 completed Tiffani Yousif RN null, [facility] 06/15/2019 16:47:14 Hep A, adult 08/22/19 21 cancelled patient objection Jim Almendarez MD [address] [facility], [place], [address], [facility] 08/21/2020 13:07:34 Influenza, split virus, quadrivalent, PF 08/22/19 21 cancelled patient objection Jim Almendarez MD [address] [facility], [place], [address], [facility] 08/21/2020 13:07:34 meningococcal B, OMV 08/22/19 21 completed [facility] 08/21/2020 13:15:22 Past Encounters Encounter ID Performer Location Encounter Start Date Encounter Closed Date Diagnosis/Indication Diagnosis SNOMED-CT Code Diagnosis ICD10 Code Diagnosis Note [id number] P[facility] Ad[facility]ado w [address] [place] [id number] 4 01/17/2011 15:01:46 01/17/2011 18:01:55 [id number] [facility] w [address] [place] [id number] 4 01/25/2011 14:57:33 01/25/2011 17:09:20 [id number] [facility] w [address] [place] [id number] 4 02/14/2011 16:24:35 02/14/2011 17:52:04 [id number] [facility] w [address] [place] [id number] 4 03/05/2011 13:42:50 03/05/2011 17:08:42 [id number] P[facility] w [address] [place] [id number] 4 04/19/2011 15:28:47 04/19/2011 17:18:42 [id number] PVP [address] [address] 06/02/2011 11:38:01 06/02/2011 13:08:26 [id number] [facility] w [address] [place] [id number] 4 06/18/2011 15:24:36 06/18/2011 18:21:57 [id number] P[facility] w [address] [place] [address] 07/05/2011 14:21:59 07/05/2011 16:44:14 [id number] P[facility] w [address] [place] [id number] 4 07/30/2011 16:18:29 07/30/2011 16:51:21 [id number] [facility] [address] [place] [id number] 4 09/26/2011 13:57:07 09/26/2011 17:37:13 [id number] Jim Almendarez MD [facility] [address] [place] [id number] 4 03/12/2012 13:00:43 03/12/2012 14:44:59 [id number] Jim Almendarez MD [facility] [address] [place] [id number] 4 03/16/2012 15:30:00 03/16/2012 16:49:14 [id number] Jim Almendarez MD [facility] [address] [place] [id number] 4 03/19/2012 14:28:25 03/19/2012 15:36:23 [id number] Jim Almendarez MD [facility] [address] [place] [id number] 4 10/22/2012 15:53:40 10/22/2012 18:17:20 [id number] Nasima Valera MD [facility] [address] [place] [id number] 4 02/04/2013 15:51:00 02/04/2013 16:07:06 Varicella vaccination 70248788 Shot only visit Varivax [id number] Savita White [facility] [address] [place] [id number] 4 03/23/2013 14:02:19 03/23/2013 15:11:59 Anxiety state 552251758 Obsessive- compulsive disorder 610027211 Headache 49372373 [id number] [facility] [address] [place] [address] 09/23/2013 08:38:42 09/23/2013 09:08:52 Acute pharyngitis 567113059 [id number] [facility] Aditya[address] [address] 12/06/2013 11:31:22 12/06/2013 12:36:04 Well child 453052352 Anxiety state 675100759 [id number] Savita White [address] [address] 06/02/2014 10:02:40 06/02/2014 10:38:22 Sinusitis 12470020 [id number] [facility] [address]itya[address] [address] 09/05/2014 16:53:09 09/05/2014 17:50:47 Dysuria 63279778 Low back pain 786028171 Back pain more prominent than abd pain - ? muscular strain. No CVA tenderness . No blood on Udip to suggest nephrolith iasis. Will check urine for UTI, watch progressio n of sx and recheck if worsening, dev fevers or other concerns. [id number] [facility] Chloe [address] [address] 12/08/2014 15:15:51 12/08/2014 17:21:13 Well child 667510423 [id number] Jim Almendarez MD [address] [address] 4 03/14/2015 16:25:39 03/14/2015 17:40:48 Anxiety 42147367 F41.9 Dermoid cyst of skin 276 520926 D23.9 [id number] Mateo Cameron [address] [address] 4 04/25/2015 16:09:14 04/25/2015 16:21:54 Active or passive immunization 567756382 Z23 [id number] Jim Almendarez MD [address] [address] 10/05/2015 13:25:30 10/05/2015 14:06:33 Anxiety 04587164 F41.9 [id number] Jim Almendarez MD [address] [address] 4 10/27/2015 16:03:30 10/27/2015 17:05:45 Upper respiratory infection 63483169 J06.9 [id number] Jim Almendarez MD [address] [address] 4 01/08/2016 15:44:37 01/08/2016 17:05:11 Well child 240625181 Z00.129 Active or passive immunization 960924794 Z23 Anxiety state 962302161 F41.1 [id number] Jim Almendarez MD [address] [address] 4 05/24/2016 10:16:49 05/24/2016 11:02:34 Anxiety state 153974050 F41.1 [id number] Samreen Case MD [address] [address] 4 05/29/2016 11:30:00 05/29/2016 12:55:20 Acute pharyngitis 476748043 J02.9 Pneumonia 213475504 J18. 9 [id number] Samreen Case MD [address] [address] 4 08/25/2016 09:04:45 08/25/2016 10:04:34 Acute pharyngitis 512592286 J02.9 Fever 799219894 R50.9 Herpes labialis 5064721 B00.1 Viral syndrome 496815113 B34.9 [id number] Jim Almendarez MD [address] [address] 4 01/20/2017 16:02:09 01/20/2017 17:15:02 Well child 636340550 Z00.129 Anxiety state 904900679 F41.1 [id number] Jim Almendarez MD [address] [address] 4 07/17/2017 15:10:12 07/17/2017 17:22:30 Anxiety 52260260 F41.9 Education about sexually transmitted disease prevention 286847787 Z70.8 [id number] Samreen Case MD [address] [address] 4 08/19/2017 10:28:32 08/19/2017 13:45:24 Acute pharyngitis 089752382 J02.9 Acute conjunctivitis 537 94202 H10.33 [id number] Jim Almendarez MD [address] [address] 4 12/19/2017 08:44:55 12/19/2017 12:52:31 Abdominal pain 87206790 R10.9 [id number] Jim Almendarez MD [address] [address] 4 04/22/2018 16:23:05 04/22/2018 17:50:35 Adult health examination 228538527 Z00.00 Normal bod y mass index 10980033 Z68.23 Anxiety state 225526441 F41.1 Active or passive immunization 328332277 Z23 [id number] Harmony Zarate [address] [address] 4 01/22/2019 12:44:26 01/22/2019 13:41:36 Night sweats 69370586 R61 Unintentio nal weight loss 583512272 R63.4 Recurrent herpes simplex labialis 590075768 B00.1 Abdominal pain 48450329 R10.9 Malaise and fatigue 2717 67395 R53.83 Substance abuse 94532154 F19.10 Proteinuria 60621351 R80 .9 [id number] Jim Almendarez MD [address] [address] 4 02/23/2019 09:54:27 02/23/2019 11:39:04 Anxiety 89347971 F41.9 Sleep disorder 38032582 G47.9 Gastritis 5701684 K29.70 [id number] Jim Almendarez MD [address] [address] 4 03/10/2019 15:27:00 03/10/2019 17:00:59 Anxiety 05790348 F41.9 Gastritis 0420664 K29.70 [id number] Jim Almendarez MD [address] [address] 4 06/15/2019 16:06:30 06/15/2019 17:09:01 Active or passive immunization 603760143 Z23 Adult heal th examination 831762166 Z00.00 Normal bod y mass index 89085913 Z68.21 [id number] Jim Almendarez MD [address] [address] 12/06/2019 15:09:43 12/06/2019 15:44:16 Anxiety 18309466 F41.9 [id number] Jim Almendarez MD [address] [address] 4 08/21/2020 12:45:00 08/21/2020 13:20:09 Active or passive immunization 941175353 Z23 Adult heal th examination 099302256 Z00.00 Diet education 15514599 Z71.3 Exercises education, guidance, and counseling 591488340 Z71.82 Normal bod y mass index 11676311 Z68.1 Anxiety 93578502 F41.9 [id number] Samreen Case MD [address] [address] 10/11/2020 16:26:55 10/12/2020 14:38:14 Streptococcal sore throat 09401384 J02.0 Hypertroph y of tonsils 98193646 J35.1 Snoring 76079024 R06.83 Anxiety 82609826 F41.9 Health Concerns Section Related Observation LastModified by Organization Detai ls LastModified Time None Recorded Concern Status LastModified by Organization Details LastModified Time None Recorded Advance Directives Directive None Recorded Payers Encounter Date Sequence Insurance Name Policy Number Policy Goodson Covered Member ID Goodson Member ID Guarantor Name 03/10/2019 1 [place] [facility] [id number] Yen Rai [id number] Maddie Will 06/15/2019 1 [place] [facility] ([facility] [id number] Yen Atwood [id number] Maddie Will 12/06/2019 1 [place] [facility] ([facility] [id number] Yen Atwood [id number] Maddie Will 08/21/2020 1 [place] [facility] [employer] ([facility]) [id number] Yen Atwood [id number] Maddie Acevedoorentino 10/11/2020 1 [place] [facility] [employer] ([facility]) [id number] Yen Atwood [id number] Maddie Sandersntino Notes Date Note Type Note Provider Name [...] of getting a therapist Jim Almendarez MD [address] [place] [address], , [facility] 03/10/2019 17:00:43 12/06/2019 text/html Pt and Mom/Dad a re afebrile. No ill symptoms in >10 days. No known Covid 19 exposure.Patient here for anxiety recheck; on Escitalopram 10mg. States she is very happy with the medication and that it is working well. No side effects.Was in therapy about weekly then covid. Doing well on lexapro. Med helps. Works at [employer]. planed to return to school but covid. Lives with mom. Good relations with mom. No SI. Anxiety under good control. Smokes pot 2-3 times a week. Jim Almendarez MD [address] [place], [place], , [facility] 12/06/2019 15:43:59 08/21/2020 text/html Pt afebrile. No ill symptoms in >10 days. No known Covid 19 exposure. No travel out of [place] in > 2 weeks. Jim Almendarez MD [address] [place], [place], , [facility] 08/21/2020 13:14:06 10/11/2020 text/html RS Sick [...] vaccinated but pt has declined.PMH has had Hernando in past; told by oral surgeon her tonsils were abnormally large and pt does have mild snoring/no apnea Samreen Case MD [address] [place], [place], , [facility] 10/12/2020 03:42:21 OBGyn Episode No OBEpisode recorded.
--- OUTSIDE RECORDS SUMMARY | 2024-09-02 16:50 | XMS_ITS | Continuity of Care Document ---
Author Organization [facility] [address] [place] [address] Phone [phone] Social History Type Date Description Comments Sex Unknown Medical Devices Description No Information Available Encounters Description No Information Available Assessments Description No Information Available Plan of Treatment No Information Available Functional Status Description No Information Available Mental Status Description No Information Available Referrals Description No Information Available
--- OUTSIDE RECORDS SUMMARY | 2024-09-02 16:50 | XMS_ITS | Patient Health Record ---
Author Organization [facility] Address [address] [facility] [place] [address] Care Team Providers Care Folding Machine Operator Name Role Phone JOVANNI JOHNNY Unavailable [phone] ALLERGIES No Known Allergies REASON FOR REFERRAL [...] Notes Problem Other fatigue (R53.83) Active confirmed 37065057 Problem Encounter for general adult medical examination without abnormal findings (Z00.00) Active confirmed 006401212 Problem Hyperlipidemia, unspecified hyperlipidemia type (E78.5) Active confirmed 58383841 Problem Anxiety (F41.9) Active confirmed Anxiet y (50201799) Problem Vitamin D deficiency (E55.9) Active confirmed 81249201 Problem Screening for diabetes mellitus (Z13.1) Active confirmed 294745011 Problem Epigastric abdominal pain (R10.13) Active confirmed 34212032 Problem Weight loss, abnormal (R63.4) Active confirmed 358513193 Encounters Encounter Location Date Provider Diagnosis [facility] [address] [place] [address] 11/05/2023 JOHNNY BAIG PLAN OF TREATMENT Pending [...] Insured Coverage Start Date Coverage End Date [facility] [address] [place] [address] [phone] [id number] Yazmin Atwood Self - patient is the insured
--- OUTSIDE RECORDS SUMMARY | 2024-09-02 16:50 | XMS_ITS | Clinical Summary ---
Author Organization [facility] Address [address] [place] [address] Care Team Providers Care Machinist Tool And Die Name Role Phone Lawrence Mascorro MD Primary [...] age to complete this topic Care Teams Machinist [employer] Relationship Specialty Start Date End Date Lawrence Mascorro MD [address] [place] [address] PCP - General Internal Medicine 05/10/21
--- OUTSIDE RECORDS SUMMARY | 2024-09-02 16:50 | XMS_ITS ---
Author Organization [facility] Address [address] [place] [address] Care Team Providers Care Spun Paste Machine Operator Name Role Phone BAIG, JOHNNY Unavailable [phone] Encounters Encounter Location Date Provider Diagnosis [facility] [address] [place] [address] 11/05/2023 JOHNNY BAIG PLAN OF TREATMENT No Information Progress Notes * Lauryn YOB: [birth year] (23 yo F)Acc No.[id number]:11/05/2023 Patient:??Yazmin YO :2000?Age:23 Y?Sex:Fe male Address:[place] [address] * true * Date:??
--- OUTSIDE RECORDS SUMMARY | 2024-09-02 16:50 | XMS_ITS | Clinical Summary ---
Author Organization [facility] Address [address] [place] [address] Phone Care Team Providers Care Pediatric Care Coordinator Name Role Phone Lawrence Mascorro MD Primary Care Provider [phone] Medications norethindrone-e thinyl estradiol (MICROGESTIN 06/14) 1-20 mg-mcg per tablet Take 1 tablet by mouth 1 (one) time each day. 84 tablet 03/30/2024 03/29/20 25 Active amoxicillin (AMOXIL) 500 mg capsule Take 1 capsule (500 mg total) by mouth 2 (two) times a day for 7 days. 14 each 08/11/2024 08/19/19 25 Encounters Date Type Department Care Team Description 08/11/2024 5:15 PM EDT Office Visit [facility] - [address] [phone] Neha Skinner NP Tick bite of right shoulder, initial encounter (Primary Dx) from Last 3 Months Medical History Medical History Date Comments Anxiety state DX:Anxiety state Family History Medical History Relation Name Comments Breast cancer Neg Hx Cancer of Small Bowel Neg Hx Colon cancer Neg Hx Kidney cancer Neg Hx Ovarian cancer Neg Hx Pancreatic cancer Neg Hx Uterine cancer Neg Hx Social History Tobacco Use Types Packs/Day Years Used Date Smoking Tobacco: Never Smokeless Tobacco: Never Alcohol Use Standard Drinks/Week Comments Yes 0 (1 standard drink = 0.6 oz pur e alcohol) Comments Unknown Sex and Gender Information Value Date Recorded Sex Assigned at Not on file Legal Sex Female 5:04 AM EST Gender Identity Not on file Sexual Orientation Not on file Obstetrics History Last Filed Vital Signs Vital Sign Reading Time Taken Comments Blood Pressure 110/78 08/11/2024 5:43 PM EDT Pulse 72 08/11/2024 5:43 PM EDT Temperature - - Respiratory Rate 18 08/11/2024 5:43 PM EDT Oxygen Saturation - - Inhaled Oxygen Concentration - - Weight 64.4 kg (142 lb) 02/28/2023 9:31 AM EDT Height 165.1 cm (5' 5 ) 02/28/2023 9:31 AM EDT Body Mass Index 23.63 02/28/2023 9:31 AM EDT Plan of Treatment Health Maintenance Due Date Last Done Comments Gonorrhea/Chlamydia Screening 1999 Cervical Cancer Screening: Pap Smear 09/14/2020 DTaP,Tdap,and Td Vaccines (7 - Td or Tdap) 09/25/2021 09/26/2011, 09/21/2004, 09/21/2004, Additional history exists Depression Screening 04/28/2022 HIV Screening 04/28/2022 Hepatitis C Screening 04/28/2022 Social Influencers of Health Screening 04/28/2022 COVID-19 Vaccine ( season) 2024 06/28/2021, 05/31/2021, 01/18/2021 Influenza Vaccine (Season Ended) 2025 04/22/2018, 03/03/2018, 06/19/2012 Hepatitis B Vaccines Completed 07/02/2000, 1999, 1999 HIB Vaccines Completed 01/05/2001, 01/2000, 01/30/2000, Additional history exists Pneumococcal Vaccine: Pediatrics (0 to 5 Years) and At-Risk Patients (6 to 64 Years) Completed 01/05/2001, 09/24/2000, 07/02/2000, Additional history exists IPV Vaccines Completed 10/12/2003, 06/2000, 01/30/2000, Additional history exists MMR Vaccines Completed 09/21/2004, 01/05/2001 Varicella Vaccines Completed 02/04/2013, 09/24/2000 Meningococcal ACWY Vaccine Completed 01/08/2016, HPV Vaccines Completed 12/24/2017, 05/2014, 12/08/2014, Additional history exists Meningococcal B Vaccine Completed 08/21/2020, 06/15 Hepatitis A Vaccines Aged Out No long er eligible based on patient's age to complete this topic RSV Immunization Patients Under 20 months Aged Out No longer eligible based on patient's age to complete this topic Insurance [facility] [place] [id number] Care Teams Pediatric Care Coordinator Relationship Specialty Start Date End Date Lawrence Mascorro MD [address] [place] [id number] PCP - General Internal Medicine 05/10/21
--- OUTSIDE RECORDS SUMMARY | 2024-09-02 16:51 | XMS_ITS | Data Portability ---
Author Organization [place] [facility],, DENISHA COWAN MD Address [address] [address] Assessment No assessment recorded. Plan of Treatment Reminders Order Date Submit Date Provider Last Modified By Organization Details Last Modified Time Details Appointments None recorded. Lab None recorded. Referral None recorded. Procedures None recorded. Surgeries None recorded. Imaging None recorded. Medication Orders Depo-Clinical Esthetician a 150 mg/mL intramuscul ar suspension 2022 023 [email or web address] n1 [id number], [address] [place] [address], [id number], 3 08:26:36 Depo-Clinical Esthetician a 150 mg/mL intramuscul ar suspension 2021 022 [email or web address] n1 [id number], [address] [place] [address], [id number], 2 08:16:55 Depo-Clinical Esthetician a 150 mg/mL intramuscul ar suspension 2021 022 [email or web address] n1 [id number], [address] [place] [address], [address], 2 15:15:42 Depo-Clinical Esthetician a 150 mg/mL intramuscul ar suspension 2021 022 [email or web address] n1 [id number], [address] [place] [address], [id number], 2 09:50:44 Patient TargetsNo targets recorded. Patient Instructions Encounter Date Encounter Id Patient Instructions Last Modified By Organization Details Last Modified Time 09/21/2021 [id number] shot for control: care instructions Not available 09/21/2021 09:50:44 12/17/2021 [id number] shot for control: care instructions Not available 12/17/2021 15:15:41 03/14/2022 [id number] shot for control: care instructions Not available 03/14/2022 08:16:55 06/06/2022 [id number] shot for control: care instructions Not available 06/06/2022 08:26:36 09/06/2022 [id number] She is here for annual exam, she [...] has an appointment this to see a manager sas. She has never tried prilosec. We discussed [...] and Address Organization Details Recorded Time Chill 40736010 Active 2018 Denisha Cowan MD [address] [facility],[address], [place], [address], [facility] - [facility], 9 14:44:22 Fatigue 35022128 Active 2018 Denisha Cowan MD [address] [facility],[address], [place], [address], [place] - [facility], 9 14:44:30 Unexplained weight loss 487031699 Active 2021 Denisha Cowan MD [address] [facility],[address], [place], [address], [facility] - [facility], 2 11:06:02 Problem Notes None recorded. Medical [...] Not Available Not Available No t Available Depo-Clinical Esthetician a 150 mg/mL intramuscul ar syringe Inject [...] Updated DateTime 2 168.91 cm 19.4 kg/m2 23653.2 7 g 97.2 [degF] 76 /min 102 mm[Hg] 65 mm[Hg] Candelaria Armstrong [place] - [facility], 2 09:32:55 Date Recorded Body height Body mass index (BMI) Body weight Heart rate Systolic blood pressure Diastolic blood pressure Provider Name and Address Organization Details Last Updated DateTime 2 168.91 cm 20.7 kg/m2 90758.0 1 g 76 /min 107 mm[Hg] 62 mm[Hg] Candelaria Silva in [facility], 2 14:41:59 Date Recorded Body height Body mass index (BMI) Body weight Heart rate Systolic blood pressure Diastolic blood pressure Provider Name and Address Organization Details Last Updated DateTime 2 168.91 cm 20.7 kg/m2 03486.0 1 g 65 /min 103 mm[Hg] 52 mm[Hg] Candelaria Silva in [facility], 2 07:57:10 Date Recorded Body height Body mass index (BMI) Body weight Heart rate Body temperature Systolic blood pressure Diastolic blood pressure Provider Name and Address Organization Details Last Updated DateTime 3 168.91 cm 21.3 kg/m2 27558.1 g 81 /min 98.8 [degF] 110 mm[Hg] 59 mm[Hg] Ana Silva in [facility], 3 07:57:48 Date Recorded Body height Body mass index (BMI) Body weight Heart rate Systolic blood pressure Diastolic blood pressure Provider Name and Address Organization Details Last Updated DateTime 3 168.91 cm 22.1 kg/m2 91946.3 4 g 79 /min 129 mm[Hg] 66 mm[Hg] Candelaria Silva in [facility], 3 14:18:07 Social History Question Answer Notes LastModified by Organizat ion Details LastModified Time Tobacco Smoking Status Never Smoker Not Available [facility] 03/28/2020 03:19:43 Do You Have An Advance Directive? No [id number] Information not available 03/28/2020 What Is Your Level Of Alcohol Consumption? Occasional Information not available 01/04/2021 How Many Years Have You Consumed Alcohol? 1 Information not available 01/04/2021 What Is Your Level Of Caffeine Consumption? Moderate [id number] Information not available 03/28/2020 How Much Tobacco Do You Chew? None [id number] Information not available 03/28/2020 In The 14 Days Before Symptom Onset, Have You Had Close Contact With A Laboratory-lissette FERRARIID-19 While That Case Was Ill? No [id number] Information not available 03/28/2020 In The 14 Days Before Symptom Onset, Have You Had Close Contact With A Person Who Is Under Investigation For COVID-19 While That Person Was Ill? No [id number] Information not available 03/28/2020 Have You Been To An Area Known To Be High Risk For COVID-19? No [id number] Information not available 03/28/2020 Are You Currently Employed? Yes Information not available 09/21/2021 What Type Of Diet Are You Following? REGULAR [id number] Information not available 03/28/2020 Which Illicit Or Recreational Drugs Have You Used? Marijuana Information not available 10/13/2020 Do You Reside In Or Have You Traveled To An Area Where Ebola Virus Transmission Is Active? No [id number] Information not available 03/28/2020 Do You Or Have You Ever Used E-cigarettes Or Vape? Current User Of Electronic Cigarettes Sometimes Information not available 04/19/2020 Education 12 Information no t available 01/21/2019 What Is The Highest Grade Or Level Of School You Have Completed Or The Highest Degree You Have Received? [id number] Information not available 01/04/2021 Who Is Your Employer? 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 0 Information not available 01/21/2019 Are There Any Guns Present In Your Home? No [id number] Information not available 03/28/2020 High Number Of [...] available 01/21/2019 Are You Sexually Active? Yes [id number] Information not available 03/28/2020 Smoke Alarm In Home Yes Information not available 01/21/2019 At What Age Did You Start Smoking Tobacco? 16 Marijuana Information not available 10/13/2020 Do You Or Have You Ever Used Smokeless Tobacco? Never Used Smokeless Tobacco [id number] Information not available 03/28/2020 How Much Tobacco Do You Smoke? No [id number] Information not available 03/28/2020 General Stress Level Medium Information not available 01/21/2019 Do You Feel Stressed (tense, Restless, Nervous, Or Anxious, Or Unable To Sleep At Night)? [id number] Information not available 01/04/2021 Do You Use Any Illicit Or Recreational Drugs? Yes Information not available 01/04/2021 Do You Use Sunscreen Routinely? Yes [id number] Information not available 03/28/2020 How Many Years Have You Smoked Tobacco? 0 [id number] Information not available 03/28/2020 Have You Recently [...] available 01/21 14:11:20 Medical History Condition Response Anesthesia complications N High Blood Pressure N Candidate for MyRisk panel N Autoimmune Condition N Lung Disease N Depression N Defects or Inherited Disease N History of Ovarian Cancer N BRCA testing in past N Anxiety Disorder Y Arthritis N Infertility N History of Cancer N Endometriosis N Thyroid Problems N Kidney or Bladder Problems N GI Problems N Anemia N History of Breast Cancer N EBENEZER exposure N Osteopenia N Psychiatric Illness N Diabetes N Headaches or Migraines Y Asthma N Hepatitis N Heart Disease N Hypertension N Osteoporosis N Gynecological History Statement/Question Response Flow Light Date of LMP 04/20/2019 Frequency of Cycle (Q days) Menses Monthly N Duration of Flow (days) Age at Menarche 12 Current Control Method Depo-Clinical Esthetician a Obstetrics History GPAL:G 1 P 0 0 1 0 Type Value Induced 1 Living 0 Total 1 Immunizations Vaccine Type Date Status Note Provider Nam e and Address Organization Details Recorded Time Influenza, split virus, quadrivalent, preservative 8 completed Ana Meczywor null, [place] - [facility], 01/21/2019 14:10:35 HPV, unspecified formulation 8 completed Ana Meczywor null, [place] - [facility], 01/21/2019 14:11:02 COVID-19, mRNA, LNP-S, PF, 100 mcg/0.5mL dose or 50 mcg/0.25mL dose 1 completed Candelaria copeland [place] - [facility], 09/21/2021 09:33:54 IPV 1 completed Ana Meczywor null, [place] - [facility], 06/06/2022 08:06:22 IPV 0 completed Ana Meczywor null, [place] [facility], 06/06/2022 08:06:22 meningococcal B, OMV 1 completed Ana Meczywor null, [place] [facility], 06/06/2022 08:06:22 Hep B, adolescent or pediatric 0 completed Ana Meczywor null, [place] [facility], 06/06/2022 08:06:22 DTaP 0 completed [...] Care, 06/06/2022 08:06:22 meningococcal MCV4P 2 completed Aan Meczywor null, [place] [facility], 06/06/2022 08:06:22 COVID-19, mRNA, LNP-S, PF, 100 mcg/0.5mL dose or 50 mcg/0.25mL dose 2 completed Ana Meczywor null, [place] - [facility], 06/06/2022 08:06:22 Hib, unspecified formulation 0 completed Ana Meczywor null, [place] [facility], 06/06/2022 08:06:22 Influenza, split virus, quadrivalent, PF 8 completed Ana Meczywor null, [place] [facility], 06/06/2022 08:06:22 varicella 3 completed Ana Meczywor null, [place] - [facility], 06/06/2022 08:06:22 pneumococcal conjugate PCV 7 1 completed Ana Meczywor null, [place] [facility], 06/06/2022 08:06:22 Hib, unspecified formulation 0 completed Ana Meczywor null, [place] [facility], 06/06/2022 08:06:22 HPV, quadrivalent 4 completed Ana Meczywor null, [place] [facility], 06/06/2022 08:06:22 Hib, unspecified formulation 0 completed Ana Meczywor null, [place] [facility], 06/06/2022 08:06:22 Tdap 2 completed Ana Meczywor null, [place] [facility], 06/06/2022 08:06:22 Past Encounters Encounter ID Performer Location Encounter Start Date Encounter Closed Date Diagnosis/Indication Diagnosis SNOMED-CT Code Diagnosis ICD10 Code Diagnosis Note [id number] MD DENISHA Stephenson MD [address] [facility] [address] [place] [address] 01/21/2019 13:52:52 01/21/2019 15:49:29 Specialized medical examination 89310352 Z01.419 Venereal d isease screening 616360035 Z11.3 Dysuria 97869230 R30.0 Urine for culture 557387 001 Z75.2 [id number] MD DENISHA Stephenson MD [address] [place] [address],[address] [place] [id number] 02/05/2019 08:20:30 02/05/2019 09:53:47 Dysmenorrhea [id number] N94.4 [id number] MD DENISHA Stephenson MD [address] [place] [address],[place] [address] 04/30/2019 08:50:44 04/30/2019 12:14:24 Dysmenorrhea [id number] N94.4 [id number] MD DENISHA Stephenson MD [address] [place] [address],[place] [address] 08/03/2019 13:55:06 08/03/2019 14:48:13 Dysmenorrhea [id number] N94.4 [id number] MD DENISHA Stephenson MD [address] [place] [address],[place] [address] 10/29/2019 09:19:20 10/29/2019 09:56:40 Dysmenorrhea [id number] N94.4 [id number] MD DENISHA Stephenson MD [address] [place] [address],[place] [address] 01/24/2020 10:00:55 01/24/2020 13:34:50 Dysmenorrhea [id number] N94.4 Specialize d medical examination 97358619 Z01.419 Venereal d isease screening 808364263 Z11.3 [id number] MD DENISHA Stephenson MD [address] [place] [address],[place] [address] 04/19/2020 08:58:53 04/19/2020 09:29:28 Dysmenorrhea [id number] N94.4 [id number] MD DENISHA Stephenson MD [address] [place] [address],[place] [address] 07/17/2020 09:00:53 07/17/2020 09:52:25 Dysmenorrhea [id number] N94.4 [id number] DenishaMD DENISHA Yanes MD [address] [place] [address],[place] [address] 10/13/2020 10:20:52 10/13/2020 11:11:06 Dysmenorrhea [id number] N94.4 [id number] MD DENISHA Stephenson MD [address] [place] [address],[place] [id number] 01/04/2021 08:51:29 01/04/2021 11:41:09 Dysmenorrhea [id number] N94.4 [id number] MD DENISHA Stephenson MD [address] [place] [address],[place] [address] 04/03/2021 09:15:51 04/03/2021 10:09:38 Specialized medical examination 56744461 Z01.419 Venereal d isease screening 332721384 Z11.3 Dysmenorrhea [id number] N 94.4 [id number] MD DENISHA Stephenson MD [address] [place] [address],[place] [id number] 06/28/2021 09:57:30 06/28/2021 15:58:51 Dysmenorrhea [id number] N94.4 [id number] MD DENISHA Stephenson MD [address] [place] [address],[place] [address] 08/02/2021 10:44:04 08/02/2021 13:18:09 Chill 78531867 R68.83 Fatigue 49641877 R53.83 Unexplaine d weight loss [id number] R63.4 [id number] MD DENISHA Stephenson MD [address] [place] [address],[place] [address] 09/21/2021 09:27:52 09/21/2021 11:55:09 Dysmenorrhea [id number] N94.4 [id number] MD DENISHA Stephenson MD [address] [place] [address],[place] [address] 12/17/2021 14:38:55 12/17/2021 16:03:24 Dysmenorrhea [id number] N94.4 [id number] MD DENISHA Stephenson MD [address] [place] [address], [place] [address] 03/14/2022 07:53:16 03/14/2022 09:11:16 Dysmenorrhea [id number] N94.4 [id number] MD DENISHA Stephenson MD [address] [place] [address], [place] [address] 06/06/2022 07:55:18 06/06/2022 09:19:26 Dysmenorrhea [id number] N94.4 [id number] MD DENISHA Stephenson MD [address] [place] [address], [place] [address] 09/06/2022 14:14:10 09/06/2022 15:08:20 Health Concerns Section Related Observation LastModified by Organization Detai ls LastModified Time None Recorded Concern Status LastModified by Organization Details LastModified Time None Recorded Advance Directives Directive N: Payers Encounter Date Sequence Insurance Name Policy Number Policy Goodson Covered Member ID Goodson Member ID Guarantor Name 09/21/2021 1 [place] [facility] [id number] Yen Rai [id number] Yazmin Rai 12/17/2021 1 [place] [facility] [id number] Yen Rai [id number] Yazmin Rai 03/14/2022 1 [place] [facility] [id number] Yen Rai [id number] Yazmin Rai 06/06/2022 1 [place] [facility] [id number] Yen Rai [id number] Yazmin Rai 09/06/2022 1 [place] [facility] [id number] Yen Rai [id number] Yazmin Rai Notes Date Note Type [...] has an appointment this to see a manager sas. She has never tried prilosec.We discussed her [...] the depo provera. Denisha Cowan MD [address] [facility],[address], [place], [address], [place] [facility], 09/06/2022 14:52:57 OBGyn Episode No OBEpisode recorded.
--- NOTE | 2025-09-05 12:32 | A.OFFPSYCH_ITS ---
Intake Intake Visit Reasons: depression Car Repair Supervisor Required: No Allergies No Known Allergies Allergy (Verified 11/14/23 13:48) Medication List - Last Reconciled 09/05/25 by Irina Huber APRN escitalopram oxalate 40 mg (2 x 20 mg) PO DAILY HPI- Psychiatric Chief Complaint: depression HPI Narrative: pt reports she is 2 months weeks ; she is doing well. She reports is progressing normally. she is taking the lexapro 20mg daily. Her symptoms are manageable. she has good support. pt denies SI r HI. Past Psychiatric History: Pt came to treatment in 2020 reporting: get extra nervous She worries about a wide range of things including her health, her family's health, about her finding a job, she worries and thinks about her past experiences of being bullied at school. She appears to minimize her symptoms saying not now but in December; She reports the anxiety makes me feel like weight on shoulder sleep poor- wake up night sweats, thinks she is anemic; has vivid dreams. She reports she has loss of appetite frequently-she often has trouble eating in am until late afternoon. she will have snack at 2 pm and eats dinner- snack later in evening. She has OCD and has a hard time talking about intrusive thoughts and rituals; she does say she cleans her bedroom and her belongings a certain way every morning; she will get very upset if someone moves things. She will count to 4 if something is out of order; she was unwilling or unable to describe further. She denies depression; she enjoys her dog. She reports she has a good group of friends who can talk about anything and are supportive to each other; she loves anything to do with dogs, enjoys driving around listening music, she is not in school and likely won't go to school due to Dyslexia and difficult experiences in school. She worked 3yr at [employer] but it closed recently so she is unemployed. History of treatment when in 3rd or 4th grade for OCD, TOMI and dyslexia . She was dx of dyslexia in 3rd grade. She saw a food and nutrition professor in past but it was not a good match. She was prescribed Prozac by PCP up to 60 mg daily in past- over the past two years pt has been tapering it slowly and is now on 10 mg daily. She had an ER visit over the summer due to severe panic attack- she says she was also told she had low potassium at the time. NO inpt treatment; no SI or HI; no previous attempts to hurt or kill herself; no history of Bipolar type symptoms; failed trial of prozac Subjective Subjective Medication Compliance: Yes Side effects from medications: No Review of Systems Medical Review of Systems: unchanged Mental Status Exam Mental Status Exam Patient Appearance: Well Grooomed Patient Orientation: Person, Place, Time and Situation Level of Consciousness: Awake, Appropriate and Alert Patient Behavior: Appropriate, Cooperative and Good Eye Contact Mood Description: Calm and Happy Affect Description: Calm and Happy Patient Cognition Impaired: No Ability to Follow Directions: Good Speech Pattern: Clear Memory Description: Intact Hallucinations: None Delusions: Not Present Thought Process: Intact and Goal Oriented Thought Content: positive for Goal Oriented Judgement: Good Telehealth Telehealth Telehealth Platform: Other (please specify) ([employer]) Location of provider rendering services: practice address Location of patient: address on file Patient Identification confirmed using: Name, : Yes Telehealth method: video Patient verbally consented to treatment: Yes Patient verbally consented to billing insurance company: Yes Patient informed of any privacy concerns related to visit: Yes Minutes spent on Phone/Video with Pt.: 25 Assessment and Plan Assessment & Plan (1) OCD (obsessive compulsive disorder): Status: Acute Qualifiers: Obsessive-compulsive disorder type: mixed obsessional thoughts and acts Qualified Code(s): F42.2 - Mixed obsessional thoughts and acts Code(s): F42.9 - Obsessive-compulsive disorder, unspecified Plan lexapro 20mg daily follow up in 6-8 weeks Counseling and coordination of Care Pt. Self Management counseling: Maintenance-social rhythm, Mod caffeine/ETOH intake, Nutrition education and improvement, Sleep hygiene and Behavior activation Medication management counseling: Effectiveness, Side effects, Dosing range, Duration, Drug interaction and Adherence Diagnosis and Prognosis Counseling: Accuracy of diagnosis, Prognosis over time, Impact of diagnosis on life functions, Impact of family relationship, Problematic behaviors secondary to diagnosis and Adequacy of current interventions Details: I spent 30 minutes reviewing the record, seeing the patient and documenting in the medical record. Counseling provided to the patient/caregiver as outlined below. Addressed patient/caregiver concerns regarding current medication regime including effective adherence. Addressed patient/caregiver concerns regarding diagnosis and prognosis including accuracy of diagnosis, prognosis over time, impact of diagnosis. Addressed patient/caregiver concerns regarding impact of recent stressors. PFSH Social History: lives with mom, stepdad, grandmother and step sister ; works as technology officer. Substance History: vapes especially at night to get back t sleep if wakes in night; uses small amounts on weekends; drinks 4 drinks per week. Trauma History: none Coding Level of Care Code Tele Est Pt Level 4 (61095) Diagnoses Mixed obsessional thoughts and acts F42.2 Obsessive-compulsive disorder type: mixed obsessional thoughts and acts
== END 2024-09-02 13:59 | disposition home or self-care (01) ==
LOC: HO.HOP 13:58
PROVIDERS: PCP Internal Medicine; Visit Provider Clinical Nurse Specialist Psychiatric/Mental Health
DX: F42.2 Mixed obsessional thoughts and acts (principal)
CPT/HCPCS: 99499

== ENCOUNTER → 2024-09-02 13:58 | Outpatient (BNVA) | payer OTHER, SELFPAY | PROVIDERS: PCP Internal Medicine; Visit Provider Clinical Nurse Specialist Psychiatric/Mental Health ==